=== PATIENT | female | born 1950 | race Caucasian/White ===

== ENCOUNTER → 2016-04-19 | Day surgery (SDC) | payer OTHER ==
[2016-04-18 14:10] VITALS: Ht 162.6 cm; Wt 90.9 kg
[~2016-04-19] VITALS: Ht 162.6 cm; Wt 90.9 kg
[~2016-04-19] MED LIST: ACET-1256 PO; AMT50 PO; CHOL1000 PO; CITA10TA4 PO; LEVO125T4 PO; LIDOCAINE HCL 2% 2 ML VIAL (20MG/ML) ONE; MIDAZOLAM HCL 1 MG/ML 2ML VIAL ONE; OMEP40CA PO; ONDANSETRON INJ 2 MG/ML 2 ML VIAL ONE; PROPOFOL IV EMULSION 10 MG/ML 20 ML VIAL IV ONE; TRIA0.1O12 TOP; ZNTT/150 PO
[2016-04-19 13:43] VITALS: TEMP 36.4
--- NOTE | 2016-04-19 13:43 | Endo History and Physical ---
History & Physical Date of Service: Apr 19, 2016. Chief Complaint: Silva's Referring Physician: Dr. 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 Past Surgical History Hx Cardiac Surgery: No Hx Internal Defibrillator: No Hx Pacemaker: No Hx Abdominal Surgery: Yes (APPY) Hx of Implantable Prosthesis: No Hx Post-Op Nausea and Vomiting: No Hx Cancer Surgery: No Hx Thoracic Surgery: No Hx Orthopedic: Yes (RT FOOT SURGERY AND AMPUTATION OF TOES) Hx Urinary Tract Surgery: No Family History None Social History Smoking Status: Current Every Day Smoker Hx Substance Use: No Hx Alcohol Use: No Allergies Coded Allergies: Hydrocodone (Verified Allergy, Mild, HYPER, 08/18/15) Replaces HYCODAN Homatropine (Verified Allergy, Unknown, HYPER, 04/18/16) Replaces HYCODAN Amoxicillin (Verified Adverse Reaction, Mild, DIARRHEA, 08/18/15) Clavulanic Acid (Verified Adverse Reaction, Mild, DIARRHEA, 08/18/15) Uncoded Allergies: ANTICHOLINERGIC (Allergy, Unknown, HYPER, 04/18/16) Replaces HYCODAN Current Medications Reported Home Medications Medications Dose Route/Sig Max Daily Dose Days Date Category Kenelog 0.1% (Triamcinolone Acetonide) Oint 1 Dose TOP BID 08/18/15 Reported Tylenol (Acetaminophen) 500 Mg Tab 1 Tab PO HS PRN 08/18/15 Reported Vitamin D3 (Cholecalciferol) 1,000 Unit Tab 1 Tab PO QAM 08/18/15 Reported Zantac (Ranitidine HCl) 150 Mg Tab 150 Mg PO HS 08/18/15 Reported Prilosec (Omeprazole) 40 Mg Capcr 40 Mg PO QAM 08/18/15 Reported Elavil (Amitriptyline HCl) 50 Mg Tab 100 Mg PO QAM 08/18/15 Reported Levothyroxine Sodium 125 Mcg Tab 1 Tab PO QAM 08/18/15 Reported Citalopram Hydrobromide 10 Mg Tab 1 Tab PO QAM 08/18/15 Reported Vital Signs Weight (Kilograms): 90.91 Height (Feet): 5 Height (Inches): 4 Physical Exam General Appearance: WD/WN, no apparent distress Respiratory/Chest: Auscultation: breath sounds normal Cardiovascular: Heart Auscultation: RRR Abdomen: Bowel Sounds: normal Inspection & Palpation: soft, non-distended, no tenderness, guarding & rebound Assessment and Plan Assessment: 65 yo CF who presents for 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 Plan: Proceed with EGD.
--- NOTE | 2016-04-19 14:35 | Discharge Instructions ---
Endoscopy Patient Instructions Date / Procedure(s) Performed Apr 19, 2016. EGD Allergy Information Coded Allergies: Hydrocodone (Verified Allergy, Mild, HYPER, 08/18/15) Replaces HYCODAN Homatropine (Verified Allergy, Unknown, HYPER, 04/18/16) Replaces HYCODAN Amoxicillin (Verified Adverse Reaction, Mild, DIARRHEA, 08/18/15) Clavulanic Acid (Verified Adverse Reaction, Mild, DIARRHEA, 08/18/15) Uncoded Allergies: ANTICHOLINERGIC (Allergy, Unknown, HYPER, 04/18/16) Replaces HYCODAN Discharge Date / Findings Apr 19, 2016. Silva's Esophagus s/p biopsies Hiatal hernia Medication Instructions OK to resume all medications today as prescribed. Reported Home Medications Medications Dose Route/Sig Max Daily Dose Days Date Category Kenelog 0.1% (Triamcinolone Acetonide) Oint 1 Dose TOP BID 08/18/15 Reported Tylenol (Acetaminophen) 500 Mg Tab 1 Tab PO HS PRN 08/18/15 Reported Vitamin D3 (Cholecalciferol) 1,000 Unit Tab 1 Tab PO QAM 08/18/15 Reported Zantac (Ranitidine HCl) 150 Mg Tab 150 Mg PO HS 08/18/15 Reported Prilosec (Omeprazole) 40 Mg Capcr 40 Mg PO QAM 08/18/15 Reported Elavil (Amitriptyline HCl) 50 Mg Tab 100 Mg PO QAM 08/18/15 Reported Levothyroxine Sodium 125 Mcg Tab 1 Tab PO QAM 08/18/15 Reported Citalopram Hydrobromide 10 Mg Tab 1 Tab PO QAM 08/18/15 Reported Provider Instructions Activity Restrictions - No exercising or heavy lifting for 24 hours. - Do not drink alcohol the day of the procedure. - Do not drive a car or operate machinery until the day after the procedure. - Do not make any important decisions or sign important papers in 24 hours after the procedure. Following Day: - Return to full activity which may include returning to work/school. Diet Start your diet with liquids and light foods (jello, soup, juice, toast). Then eat your usual diet if not nauseated. Treatment For Common After Affects For mild abdominal pain, bloating, or excessive gas: - Rest - Eat lightly - Lie on right side Follow-Up Information Follow-up with Dr. Marcelino Guillen as scheduled Anesthesia Information What You Should Know You have had a procedure that required some medicine to reduce anxiety and discomfort. This treatment is called moderate sedation. After receiving the treatment, you may be sleepy, but you will be able to breathe on your own. The effects of the treatment may last for several hours. Follow these instructions along with Activity/Diet recommendations noted above: * Do NOT do anything where dizziness or clumsiness would be dangerous. * Rest quietly at home today, then you can be up and about tomorrow. * Have a responsible person stay with you the rest of today. * You may have had an I.V. today. If so, you may take the dressing off later today. Recommendations Call your doctor if: * Trouble breathing * Continuous vomiting for more than 24 hours * Temperature above 101 degrees * Severe abdominal pain or bloating * Pain not relieved by pain medicine ordered * There is increased drainage or redness from any incision * A large amount of rectal bleeding greater than 2-3 tablespoons. (If you had a polyp/s removed or have hemorrhoids, a small amount of blood - from the rectum is to be expected.) * You have any unanswered questions or concerns. IN THE EVENT OF A SERIOUS EMERGENCY, GO TO THE NEAREST EMERGENCY ROOM Your discharge instructions were prepared by provider Ken Holland. Patient Instructions Signature Page Anusha Santiago Patient (or Guardian) Signature/Date: I have read and understand the instructions given to me by my caregivers. Caregiver/RN/Doctor Signature/Date: The above-named patient and/or guardian has received patient instructions on this date. + Original Patient Signature Page (only) stays with chart. Please make copy for patient.
[2016-04-19 14:54] VITALS: BP 111/69; PULSE 73; O2SAT 96
--- NOTE | 2016-04-19 15:19 | GI REPORT ---
Procedure Date: 04/19/2016 2:06 PM Procedure: Upper GI endoscopy Indications: Follow-up of Silva's esophagus Medicines: Monitored Anesthesia Care Complications: No immediate complications. Estimated Blood Loss: Estimated blood loss: none. Procedure: Pre-Anesthesia Assessment: - Prior to the procedure, a History and Physical was performed, and patient medications and allergies were reviewed. The patient's tolerance of previous anesthesia was also reviewed. The risks and benefits of the procedure and the sedation options and risks were discussed with the patient. All questions were answered, and informed consent was obtained. Prior Anticoagulants: The patient has taken no previous anticoagulant or antiplatelet agents. ASA Grade Assessment: III - A patient with severe systemic disease. After reviewing the risks and benefits, the patient was deemed in satisfactory condition to undergo the procedure. After obtaining informed consent, the endoscope was passed under direct vision. Throughout the procedure, the patient's blood pressure, pulse, and oxygen saturations were monitored continuously. The On-site loaner was introduced through the mouth, and advanced to the second part of duodenum. The upper GI endoscopy was accomplished without difficulty. The patient tolerated the procedure well. Findings: There were esophageal mucosal changes consistent with short-segment Silva's esophagus present at the gastroesophageal junction. The maximum longitudinal extent of these mucosal changes was 2 cm in length. Mucosa was biopsied with a cold forceps for histology. A small hiatus hernia was present. The examined duodenum was normal. Impression: - Esophageal mucosal changes consistent with short-segment Silva's esophagus. Biopsied. - Small hiatus hernia. - Normal examined duodenum. Recommendation: - Resume previous diet. - Continue present medications. - Await pathology results. - Return to primary care physician as previously scheduled. Ken Holland, 04/19/2016 2:34:39 PM This report has been signed electronically. Note Initiated On: 04/19/2016 2:06 PM I attest to the content of the Intraoperative Record and orders documented therein, exceptions below
--- NOTE | 2016-04-19 15:36 | Anesthesiology Progress Note ---
Anesthesia Post Op Note Date & Time Apr 19, 2016 at 15:36 Vital Signs Pain Intensity: 0 Vital Signs Past 12 Hours Date Time Temp Pulse Resp B/P Pulse Ox O2 Delivery O2 Flow Rate FiO2 04/19/16 14:54 73 20 111/69 96 Room Air 04/19/16 14:39 78 20 97/54 93 Room Air 04/19/16 14:35 79 20 86/46 96 Room Air 04/19/16 13:43 36.4 81 20 117/64 98 Room Air Notes Mental Status: alert / awake / arousable Nausea / Vomiting: adequately controlled Pain: adequately controlled Airway Patency, RR, SpO2: stable & adequate BP & HR: stable & adequate Hydration State: stable & adequate Anesthetic Complications: no major complications apparent
== END | disposition home or self-care (01) ==
LOC: C.GI 13:16
PROVIDERS: ATTEND Internal Medicine
DX: K22.70 Barrett's esophagus without dysplasia (principal); K44.9 Diaphragmatic hernia without obstruction or gangrene; Z89.421 Acquired absence of other right toe(s); F17.210 Nicotine dependence, cigarettes, uncomplicated; Z88.5 Allergy status to narcotic agent; Z88.1 Allergy status to other antibiotic agents; Z88.8 Allergy status to other drugs, medicaments and biological substances; J45.909 Unspecified asthma, uncomplicated; E78.5 Hyperlipidemia, unspecified; K21.9 Gastro-esophageal reflux disease without esophagitis; F32.9 Major depressive disorder, single episode, unspecified; G60.0 Hereditary motor and sensory neuropathy

== ENCOUNTER → 2016-06-05 | Outpatient (CLI) | payer OTHER ==
[~2016-06-05] MED LIST changes: -LEVO125T4 PO; +LEVO125T5 PO; -LIDOCAINE HCL 2% 2 ML VIAL (20MG/ML) ONE; -MIDAZOLAM HCL 1 MG/ML 2ML VIAL ONE; -ONDANSETRON INJ 2 MG/ML 2 ML VIAL ONE; -PROPOFOL IV EMULSION 10 MG/ML 20 ML VIAL IV ONE
[2016-06-05 13:20] LABS: BASO % 0.6 %; BASO ABS # 0.04 K/uL (0-0.2); COMPLETE YES; EOS % 4.8 %; HEMATOCRIT 38.3 % (37-47); IG% 0.4 %; LYMPH ABS # 1.91 K/uL (1.2-3.4); MEAN CELL VOLUME 90.5 fL (80-100); MEAN CORPUSCULAR HEMOGLOBIN 32.2 pg (25-34); MEAN CORPUSCULAR HGB CONC 35.5 g/dl (32-36); MONO % 5.6 %; NEUT % 60.6 %; PLATELET COUNT 233 K/uL (130-400); RED BLOOD COUNT 4.23 M/uL (4.2-5.4); WHITE BLOOD COUNT 6.81 K/uL (4.8-10.8)
[2016-06-05 13:38] LABS: ESTIMATED AVERAGE GLUCOSE 128 mg/dl; HA1C FLAG Normal (Normal)
[2016-06-05 13:57] LABS: AST/SGOT 16 U/L (15-37); BLOOD UREA NITROGEN 16 mg/dl (7-18); BUN/CREATININE RATIO 14.2 (10-20); CALCIUM 8.9 mg/dl (8.5-10.1); CARBON DIOXIDE 27 mmol/L (21-32); CHLORIDE 109 mmol/L (98-107); GLUCOSE 119 mg/dl (70-99); POTASSIUM 4.4 mmol/L (3.5-5.1); SODIUM 142 mmol/L (136-145)
[2016-06-05 14:10] LABS: ALB/GLOB RATIO 1.1 (0.9-2); ALKALINE PHOSPHATASE 86 U/L (45-117); ALT/SGPT 30 U/L (12-78); CHOLESTEROL 179 mg/dl (0-200); CHOLESTEROL/HDL RATIO 5.6; HDL CHOLESTEROL 32 mg/dl; LDL CHOLESTEROL CALCULATED 112 mg/dl; TRIGLYCERIDES 174 mg/dl (0-150); VERY LOW DENSITY LIPOPROT CALC 35 mg/dl
--- NOTE | 2016-06-20 11:33 | CODING QUERY MEDICAL NECESSITY ---
CQSUPPORTING DIAGNOSIS NEEDED A supporting diagnosis is required for the test/procedure performed on this patient in order for us to be reimbursed by the patient's insurance. Please provide a supporting diagnosis for the following test/procedure listed below next to the test name along with your signature. *If there is no additional diagnosis for this patient that would support the following test/procedure please document that below next to the test/procedure. Test(s)/Procedure(s) that require a supporting diagnosis: DOS 06/05/16 GLYCATED HEMOGLOBIN TEST Provider Signature: Date: Thank you Miranda Rojo Health Information Management Once completed, please kindly fax back to [phone] For questions please call [phone]
== END | disposition home or self-care (01) ==
LOC: C.LAB1850 12:21
PROVIDERS: ATTEND Internal Medicine
DX: E03.9 Hypothyroidism, unspecified (principal); K22.70 Barrett's esophagus without dysplasia; G62.9 Polyneuropathy, unspecified; E16.2 Hypoglycemia, unspecified

== ENCOUNTER → 2016-12-15 | Outpatient (CLI) | payer OTHER ==
--- NOTE | 2016-12-15 11:47 | DIAGNOSTIC IMAGING REPORT ---
RIGHT ARM 2 VIEWS HISTORY: M79.603 Arm pain right [id number] COMPARISON: None. FINDINGS: There is no fracture or dislocation. Soft tissues are unremarkable. No radiopaque foreign bodies. IMPRESSION: No fractures within the right humerus. Electronically signed by: Jacky Cantor M.D. 12/15/2016 11:46 AM Dictated Date/Time: 12/15/2016 11:41 AM
== END | disposition home or self-care (01) ==
LOC: C.RAD1850 11:27
PROVIDERS: ATTEND Internal Medicine
DX: M79.601 Pain in right arm (principal)

== ENCOUNTER → 2017-01-09 | Outpatient (CLI) | payer OTHER ==
[2017-01-09 15:04] LABS: ALT/SGPT 29 U/L (12-78); BLOOD UREA NITROGEN 13 mg/dl (7-18); BUN/CREATININE RATIO 13.3 (10-20); CALCIUM 9.1 mg/dl (8.5-10.1); CARBON DIOXIDE 24 mmol/L (21-32); CHLORIDE 105 mmol/L (98-107); CHOLESTEROL 200 mg/dl (0-200); CREATININE 0.97 mg/dl (0.60-1.20); GLUCOSE 111 mg/dl (70-99); POTASSIUM 4.1 mmol/L (3.5-5.1); SODIUM 137 mmol/L (136-145)
[2017-01-09 15:15] LABS: ALB/GLOB RATIO 1.1 (0.9-2); ALKALINE PHOSPHATASE 78 U/L (45-117); AST/SGOT 17 U/L (15-37); CHOLESTEROL/HDL RATIO 5.1; HDL CHOLESTEROL 39 mg/dl; LDL CHOLESTEROL CALCULATED 127 mg/dl; TRIGLYCERIDES 169 mg/dl (0-150); VERY LOW DENSITY LIPOPROT CALC 34 mg/dl
[2017-01-10 07:45] LABS: ESTIMATED AVERAGE GLUCOSE 120 mg/dl; HA1C FLAG Normal (Normal)
== END | disposition home or self-care (01) ==
LOC: C.LAB1850 12:57
PROVIDERS: ATTEND Internal Medicine
DX: E78.5 Hyperlipidemia, unspecified (principal); E21.3 Hyperparathyroidism, unspecified; R73.03 Prediabetes; E03.9 Hypothyroidism, unspecified

== ENCOUNTER 2017-04-30 14:51 | Emergency (ER) | payer OTHER ==
[~2017-04-30] VITALS: Ht 162.6 cm; Wt 85.0 kg
[~2017-04-30 14:51] MED LIST changes: +RANI150T85 PO; -ZNTT/150 PO
[2017-04-30 15:06] VITALS: TEMP 36.6; Ht 162.6 cm; Wt 85.0 kg
[2017-04-30] MEDS ORDERED: OMEP40CA41 PO (15:34)
[2017-04-30] MEDS ORDERED: ONDANSETRON INJ 2 MG/ML 2 ML VIAL IV STA (15:36)
[2017-04-30] MEDS ORDERED: CITA20TA9 PO (15:39)
[2017-04-30] MEDS ORDERED: MoRPHine SULFATE 4 MG/ML 1 ML CARP\\VIAL IV PRN (15:45)
[2017-04-30 16:23] LABS: BASO % 0.4 %; BASO ABS # 0.03 K/uL (0-0.2); EOS % 2.9 %; EOS ABS # 0.25 K/uL (0-0.5); HEMATOCRIT 41.6 % (37-47); HEMOGLOBIN 14.7 g/dL (12.0-16.0); IG# 0.04 K/uL (0.00-0.02); LYMPH % 29.2 %; LYMPH ABS # 2.49 K/uL (1.2-3.4); MEAN CELL VOLUME 89.8 fL (80-100); MEAN CORPUSCULAR HEMOGLOBIN 31.7 pg (25-34); MEAN CORPUSCULAR HGB CONC 35.3 g/dl (32-36); MEAN PLATELET VOLUME 9.2 fL (7.4-10.4); MONO % 6.3 %; MONO ABS # 0.54 K/uL (0.11-0.59); NEUT % 60.7 %; NEUT ABS # 5.19 K/uL (1.4-6.5); PLATELET COUNT 230 K/uL (130-400); RED CELL DISTRIBUTION WIDTH CV 12.4 % (11.5-14.5); RED CELL DISTRIBUTION WIDTH SD 40.1 fL (36.4-46.3); WHITE BLOOD COUNT 8.54 K/uL (4.8-10.8)
[2017-04-30 16:40] LABS: ALBUMIN 3.9 gm/dl (3.4-5.0); ALT/SGPT 22 U/L (12-78); BLOOD UREA NITROGEN 17 mg/dl (7-18); CALCIUM 9.6 mg/dl (8.5-10.1); CARBON DIOXIDE 24 mmol/L (21-32); CREATININE 0.81 mg/dl (0.60-1.20); GLUCOSE 86 mg/dl (70-99); LIPASE 134 U/L (73-393); POTASSIUM 4.3 mmol/L (3.5-5.1); SODIUM 137 mmol/L (136-145)
[2017-04-30 16:42] LABS: ALKALINE PHOSPHATASE 70 U/L (45-117); AST/SGOT 14 U/L (15-37); TOTAL PROTEIN 7.6 gm/dl (6.4-8.2)
--- NOTE | 2017-04-30 17:10 | DIAGNOSTIC IMAGING REPORT ---
LUMBAR SPINE W/O CONTRAST CLINICAL HISTORY: 66 years-old Female with Back pain. Acute low back pain, severe in nature COMPARISON: None. TECHNIQUE: Multiplanar, multi sequence MRI of the lumbar spine was performed without intravenous contrast. FINDINGS: The large [id number] marketing and development coordinator localizer images demonstrate no gross abnormality. Exam is mildly motion degraded. Modic type II endplate degenerative changes are noted at the anterosuperior aspect of L3. No focal bone marrow edema, acute fracture or subluxation. Conus medullaris terminates at the T12-L1 level. Signal within the imaged thoracic spinal cord appears unremarkable. The cauda equina appear unremarkable. No aortic aneurysm or adenopathy identified. 6 mm anterolisthesis L4 on L5. T12-L1: No central canal or neural foraminal stenosis. Mild facet arthrosis. L1-L2: No central canal or neural foraminal stenosis. Mild facet arthrosis and ligamentum flavum thickening. L2-L3: Mild intervertebral disc space narrowing with small posterior disc bulge flattening the ventral thecal sac resulting in mild inferior right foraminal narrowing. Additionally, there is mild facet arthrosis with ligamentum flavum thickening. L3-L4: Mild intervertebral disc space narrowing with facet arthrosis and ligamentum flavum thickening. Minimal posterior spondylitic spurring is also noted with a small posterior disc bulge which flattens the ventral thecal sac. No significant central canal narrowing. There is mild bilateral foraminal narrowing. L4-L5: Mild intervertebral disc space narrowing with circumferential annular disc bulge, moderate facet arthrosis with ligamentum flavum thickening. These changes cause mild central canal and mild bilateral foraminal stenosis. Grade 1 anterolisthesis. Minimal posterior spondylitic spurring. L5-S1: Minimal posterior spondylitic spurring with moderate facet arthrosis and ligamentum flavum thickening. Small posterior disc bulge without central canal or significant foraminal narrowing. IMPRESSION: 1. 6 mm anterolisthesis L4 on L5 without associated bone marrow edema, likely secondary to long-standing moderate facet arthropathy. 2. Degenerative changes at L4-L5 as above cause mild central canal and mild bilateral foraminal narrowing. 3. Mild bilateral foraminal stenosis at L3-L4 secondary to facet arthrosis and small posterior disc bulge. 4. No acute fracture or subluxation. The above report was generated using voice recognition software. It may contain grammatical, syntax or spelling errors. Electronically signed by: Juan Pascual M.D. 04/30/2017 5:08 PM Dictated Date/Time: 04/30/2017 4:58 PM
[2017-04-30 17:22] VITALS: BP 113/56
--- NOTE | 2017-04-30 17:39 | EMERGENCY ROOM VISIT NOTE ---
ED Visit Note First contact with patient: 15:14 Patient was seen by our PA/TIRE FABRICATOR. I was involved in the patient's care and did evaluate the patient myself. I was involved in the care throughout the ER stay. The patient presents with lower back pain. She has been doing more walking lately and this may have aggravated the back. An MRI was done, there were some chronic findings and some narrowing in different areas but nothing acutely surgical. Urinalysis does not show infection. Laboratory testing was unrevealing. Patient will be discharged with outpatient specialty follow-up.
[2017-04-30] MEDS ORDERED: KETO10TA PO (18:03)
[2017-04-30] MEDS ORDERED: PRED20TA PO (18:03)
[2017-04-30 18:30] VITALS: PULSE 87; O2SAT 98
--- NOTE | 2017-04-30 23:45 | EMERGENCY ROOM VISIT NOTE ---
ED Visit Note First contact with patient: 15:14 Chief Complaint: Severe lower back pain. History of Present Illness: Ms. Santiago is a 66-year-old white female who is brought into the ED via mobilized wheelchair complaining of severe left-sided lumbar back pain. I should note that patient is a poor historian. Multiple times during my history and physical examination she was bringing up symptoms that she was having 6-7 years ago that were not related to today's symptoms. 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 She was referred to the ED by her PCP today because she could not be seen in the office. Patient reports her pain started on , 4 days ago. Since that time her pain has been constant but has waxed and waned in intensity. She reports 5 days ago she went to the store and there was not an available motorized wheelchair/cart so she walked through 4-5 miles doing her grocery shopping until one was found. She reports the next morning she started having back pain. Initially she reports the pain was through the central portion of the lower back but then within 2 days her discomfort was over the left paraspinous muscular area. She reports at rest without movement her mild and described as achy. She rates this discomfort 3/10. Her pain is nonradiating. When she is rolling in bed or lying on the left side of her body her pain becomes more sharp in nature and she rates this discomfort 7/10. Also when she performs these activities her pain radiates up into the thoracic spine. She has not identified any alleviating factors related to the pain. She reports that prior to this event she was on prescribed Neurontin and acetaminophen for pain but stopped taking it for fear of kidney damage. Since the pain started she had restarted retaking his medications at lower dose then prescribed and has had no relief of her discomfort. Associated with these symptoms she reports she has been having urinary incontinence; she reports because she uses a motorized vehicle that when she has an immediate need to go to the bathroom it takes a moderate amount of time to get in her vehicle and to the bathroom and then subsequently has an episode of urinary incontinence. She does not feel like she is unable to control her bladder functions. She reports before the onset/ exacerbation of pain this happened approximately 10 times a week and now she reports it happens most of the time during the day when she needs to go to the bathroom. She denies fevers, chills, sweats, skin eruptions, skin color changes, recent trauma direct/repetitive to her lower back, abdominal pain, nausea, vomiting, diarrhea, constipation, fecal incontinence, lower extremity worsening weakness or numbness or tingling, urinary symptoms, hematuria. Review of Systems: As noted above in history of present illness. All body systems were reviewed and found to be negative as noted above. Past Medical History: As noted above, bronchitis, depression, dyslipidemia, hyperparathyroidism, hypothyroidism, peripheral neuropathy reactive arthritis status post tonsillectomy, adenoidectomy, appendectomy. Current Medications: Medications Dose Route/Sig Max Daily Dose Days Date Category Dose Instructions Celexa (Citalopram Hydrobromide) 20 Mg Tab 20 Mg PO DAILY 04/30/17 Reported Prilosec (Omeprazole) 40 Mg Cap 40 Mg PO DAILY 04/30/17 Reported Tylenol (Acetaminophen) 500 Mg Tab 500 Mg PO HS PRN 08/18/15 Reported Vitamin D3 (Cholecalciferol) 1,000 Unit Tab 3,000 Mg PO QAM 08/18/15 Reported Zantac (Ranitidine HCl) 150 Mg Tab 150 Mg PO HS 08/18/15 Reported Levothyroxine Sodium 125 Mcg Tab 125 Mcg PO QAM 08/18/15 Reported Allergies to Medications: Anticholinergic medications, Augmentin, homatropine, Hycodan. Social History: Patient is not employed; she is on disability; she feels safe in her home environment; she admits to daily tobacco use and rare alcohol use. Physical Examination: Vital Signs: Date Time Temp Pulse Resp B/P (MAP) Pulse Ox O2 Delivery O2 Flow Rate FiO2 04/30/17 18:30 87 18 98 04/30/17 17:22 77 16 113/56 95 Room Air 04/30/17 15:06 36.6 80 20 136/77 97 Room Air GENERAL: 66-year-old female in mild distress due to pain, chronically ill appearing, afebrile and hemodynamically stable. NEUROLOGICAL: Awake, alert and oriented to person, place and time. Answering questions appropriately and following commands. Good hand eye coordination. SKIN: Warm, dry and pink. HEENT: Atraumatic and normocephalic. PERRLA. Sclera white and conjunctiva pink. No drainage from naris. Oral cavity moist and pink. Pharynx is nonerythematous or edematous. Speech normal. No lymphadenopathy. Trachea midline. No jugular venous distention. BACK: No tenderness over the bony cervical, thoracic and lumbar spine. Mild tenderness just left of the lumbar bony spine without palpable masses or muscle spasm. Because of her pain with movement I was not able to do range of motion exercises. She does have 4/5 muscle strength in hip flexion, extension, abduction and abduction, knee flexion and extension. Negative modified straight leg raise test. No CVA tenderness. THORAX: Lungs sounds are clear to auscultation and equal bilaterally with symmetrical chest wall. No wheezing, rales or rhonchi. HEART: Regular rate and rhythm. No gallops, rubs or murmurs are appreciated. ABDOMEN: Flat, soft and nontender. Positive bowel sounds in all quadrants. No guarding, rigidity or organomegaly. EXTREMITIES: Moves all extremities well on command and with purpose. All distal neurovascular statuses are intact and equal bilaterally. Feet shows multiple surgical amputations but no signs of infection. No calf tenderness or cords. ED Course: Patient is assessed as noted above. Patient's medication list was reviewed. Laboratory Testing: Test 04/30/17 16:13 04/30/17 17:19 Range/Units White Blood Count 8.54 4.8-10.8 K/uL Red Blood Count 4.63 4.2-5.4 M/uL Hemoglobin 14.7 12.0-16.0 g/dL Hematocrit 41.6 37-47 % Mean Corpuscular Volume 89.8 80-100 fL Mean Corpuscular Hemoglobin 31.7 25-34 pg Mean Corpuscular Hemoglobin Concent 35.3 32-36 g/dl Platelet Count 230 130-400 K/uL Mean Platelet Volume 9.2 7.4-10.4 fL Neutrophils (%) (Auto) 60.7 % Lymphocytes (%) (Auto) 29.2 % Monocytes (%) (Auto) 6.3 % Eosinophils (%) (Auto) 2.9 % Basophils (%) (Auto) 0.4 % Neutrophils # (Auto) 5.19 1.4-6.5 K/uL Lymphocytes # (Auto) 2.49 1.2-3.4 K/uL Monocytes # (Auto) 0.54 0.11-0.59 K/uL Eosinophils # (Auto) 0.25 0-0.5 K/uL Basophils # (Auto) 0.03 0-0.2 K/uL RDW Standard Deviation 40.1 36.4-46.3 fL RDW Coefficient of Variation 12.4 11.5-14.5 % Immature Granulocyte % (Auto) 0.5 % Immature Granulocyte # (Auto) 0.04 0.00-0.02 K/uL Sodium Level 137 136-145 mmol/L Potassium Level 4.3 3.5-5.1 mmol/L Chloride Level 105 98-107 mmol/L Carbon Dioxide Level 24 21-32 mmol/L Anion Gap 8.0 3-11 mmol/L Blood Urea Nitrogen 17 7-18 mg/dl Creatinine 0.81 0.60-1.20 mg/dl Est Creatinine Clear Calc Drug Dose 73.1 ml/min Estimated GFR () 88.3 Estimated GFR (Non- 76.2 BUN/Creatinine Ratio 21.4 10-20 Random Glucose 86 70-99 mg/dl Calcium Level 9.6 8.5-10.1 mg/dl Total Bilirubin 0.4 0.2-1 mg/dl Direct Bilirubin < 0.1 0-0.2 mg/dl Aspartate Amino Transf (AST/SGOT) 14 15-37 U/L Alanine Aminotransferase (ALT/SGPT) 22 12-78 U/L Alkaline Phosphatase 70 45-117 U/L Total Protein 7.6 6.4-8.2 gm/dl Albumin 3.9 3.4-5.0 gm/dl Lipase 134 73-393 U/L Urine Color YELLOW Urine Appearance CLEAR CLEAR Urine pH 5.0 4.5-7.5 Urine Specific [place] 1.013 1.000-1.030 Urine Protein NEG NEG Urine Glucose (UA) NEG NEG Urine Ketones NEG NEG Urine Occult Blood NEG NEG Urine Nitrite NEG NEG Urine Bilirubin NEG NEG Urine Urobilinogen NEG NEG Urine Leukocyte Esterase NEG NEG Lumbar Spine MRI: Was reviewed by myself and read by the radiologist showing 7 mm anterolisthesis L4 on L5 without associated bone marrow edema. Degenerative changes at the L4-L5 causing mild central canal and mild bilateral foraminal narrowing. Mild bilateral foraminal stenosis at L3-L4 secondary to facet arthrosis and small posterior disc bulging and no fractures or dislocations. An IV lock was initiated and patient received 4 mg of morphine IV and 4 mg of Zofran IV for her symptoms. Patient was reassessed multiple times during her stay in the emergency department. Patient's case was reviewed with Dr. Edmonds; we agreed on diagnostic approach, treatment, disposition and plan. Patient was educated about today's findings and instructed on her treatment plan ; she verbalized understanding and agreement with this plan. Clinical Impression: Acute lumbar back pain. Decision-Making: Initially my differential diagnosis I considered muscle strain , herniated disc, lumbar mass, muscle spasm, cauda equina syndrome, pyelonephritis, and other causes. Disposition: Patient discharged home in stable condition; prior to departure she was reassessed and subjectively reported she was feeling much better and rated her discomfort 3/10. Plan: She was encouraged to continue her current medications as prescribed. Patient was prescribed Toradol 10 mg every 6 hours as needed for pain. Patient was prescribed a prednisone taper. Patient is use ice on areas of pain 5-6 times a day for 20-30 minutes. Patient was encouraged to follow-up with her PCP for recheck and possible referral to back surgery. Patient was encouraged to return the ED for worsening/uncontrolled pain, worsening urinary incontinence, bowel incontinence, rectal/genital paresthesias , fevers, abdominal pain or any new/concerning symptoms.
== END 2017-04-30 18:31 | disposition home or self-care (01) ==
LOC: C.EDB 14:53
DX: M54.5 Low back pain (principal); G71.0 Muscular dystrophy; G60.0 Hereditary motor and sensory neuropathy; F32.9 Major depressive disorder, single episode, unspecified; E78.5 Hyperlipidemia, unspecified; E21.3 Hyperparathyroidism, unspecified; E03.9 Hypothyroidism, unspecified; G62.9 Polyneuropathy, unspecified; M02.30 Reiter's disease, unspecified site; Z79.899 Other long term (current) drug therapy; Z72.0 Tobacco use; Z88.8 Allergy status to other drugs, medicaments and biological substances; Z88.1 Allergy status to other antibiotic agents

== ENCOUNTER → 2017-09-24 | Outpatient (CLI) | payer OTHER ==
[~2017-09-24] MED LIST changes: -AMT50 PO; -CITA10TA4 PO; +CITA20TA9 PO; -OMEP40CA PO; +OMEP40CA41 PO; +PRED20TA PO; -TRIA0.1O12 TOP
[2017-09-24 14:06] LABS: HEMATOCRIT 41.8 % (37-47); MEAN CELL VOLUME 89.5 fL (80-100); MEAN CORPUSCULAR HEMOGLOBIN 32.1 pg (25-34); MEAN CORPUSCULAR HGB CONC 35.9 g/dl (32-36); MEAN PLATELET VOLUME 9.9 fL (7.4-10.4); PLATELET COUNT 156 K/uL (130-400); RED CELL DISTRIBUTION WIDTH CV 12.6 % (11.5-14.5); RED CELL DISTRIBUTION WIDTH SD 40.9 fL (36.4-46.3)
[2017-09-24 14:42] LABS: ALKALINE PHOSPHATASE 70 U/L (45-117); ALT/SGPT 25 U/L (12-78); AST/SGOT 19 U/L (15-37); BLOOD UREA NITROGEN 13 mg/dl (7-18); CARBON DIOXIDE 24 mmol/L (21-32); CHOLESTEROL 192 mg/dl (0-200); CREATININE 0.89 mg/dl (0.60-1.20); GLUCOSE 96 mg/dl (70-99); LDL CHOLESTEROL CALCULATED 126 mg/dl; POTASSIUM 4.2 mmol/L (3.5-5.1); SODIUM 139 mmol/L (136-145); TOTAL PROTEIN 7.5 gm/dl (6.4-8.2)
[2017-09-25 06:17] LABS: HEMOGLOBIN A1C 5.6 % (4.5-5.6)
== END | disposition home or self-care (01) ==
LOC: C.LAB1850 12:57
PROVIDERS: ATTEND Internal Medicine
DX: E78.5 Hyperlipidemia, unspecified (principal); E21.3 Hyperparathyroidism, unspecified; K22.70 Barrett's esophagus without dysplasia; E03.9 Hypothyroidism, unspecified; E16.2 Hypoglycemia, unspecified

== ENCOUNTER 2024-10-21 11:49 | Inpatient (IN) ==
--- NOTE | 2024-10-21 12:12 | Emergency Department Note ---
Impression & Plan Acute hip pain, Mood disorder ED Provider Note NAME: JAREK SILVA AGE: 73 SEX: F : 1950 ARRIVES VIA: Ambulance INFORMANT: Patient ED PROVIDER(S): Iglesia Vu DO CHIEF COMPLAINT: Right hip groin and back pain HPI: Patient is a 73-year-old female who presents to the ER for right hip and groin and back pain. Pain in the back and groin has been present for the past several years. She notes it has waxed and waned in intensity. Denies any headache but does admit to some intermittent jaw pain. No chest pain or shortness of breath. She notes that she does feel like the FBI is watching her and tracking her. Denies any belly pain. No nausea, vomiting, or diarrhea. She notes that she does not ambulate and uses a wheelchair. ADDITIONAL HISTORY OBTAINED: Per HPI Chronic Medical/Social Conditions Affecting Care: Per HPI PAST MEDICAL HISTORY:See Below PAST SURGICAL HISTORY:See Below FAMILY HISTORY:See Below SOCIAL HISTORY:See Below HOME MEDICATIONS:See Below ALLERGIES:See Below VITALS:See Below PHYSICAL EXAMINATION: GENERAL: Sitting up in bed, alert, well appearing, well nourished, no distress, non-toxic EYE EXAM: normal conjunctiva. OROPHARYNX: mucous membranes are moist NECK: supple, no nuchal rigidity, no adenopathy, non-tender LUNGS: Clear to auscultation. Normal chest wall mechanics HEART: no murmurs, S1 normal and S2 normal ABDOMEN: abdomen soft, tender palpation right groin, normo-active bowel sounds, no masses, no rebound or guarding. BACK: Back is symmetrical on inspection and there is no deformity, no midline tenderness, no CVA tenderness. SKIN: no rashes and no bruising UPPER EXTREMITIES: upper extremities are grossly normal. LOWER EXTREMITIES: Flexion-extension of bilateral hips, and knees intact. 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 NEURO EXAM: Normal sensorium, cranial nerves II-XII grossly intact, normal speech, no gross weakness of arms, no gross weakness of legs. MEDICAL DECISION MAKING: Patient is a 73-year-old female who presents to the ER with above-stated complaint. IV was established and blood work was obtained. Labs show no significant leukocytosis or anemia. BMP with LFTs bilirubin is unremarkable. Troponin was negative. UA was negative. Chest x-ray and CT head was negative. CT of the abdomen pelvis was unremarkable. Patient was discussed with our [facility] administrator who evaluated the patient and did petition a 302 as she does appear to be paranoid and delusional. Patient was discussed with the hospitalist for further evaluation management and treatment. Consults/Care Managements Discussions: Per [facility] Triage Nursing notes reviewed. Limited review of prior medical records performed Vital Signs: reviewed and remarkable for no significant abnormalities Differential diagnosis: Mood disorder, infection, hypoglycemia, electrolyte abnormalities, cardiac sources, intracerebral event, toxicologic, trauma, neurologic, as well as other pathologies. Infection, dehydration, metabolic abnormality, hypo/hyperglycemia, electrolyte disturbance, anemia, hypoxia, cardiac sources, intracerebral event, toxicologic, neurologic, as well as other pathologies. ER treatment provided: See below Diagnostics interpreted by me include EKG and cardiac monitoring as listed below: -Cardiac Monitoring: An order was placed for continuous cardiac monitoring. The monitor shows a rate of 70 with sinus rhythm. -ECG: none -Laboratory studies:Interpreted by me as stated above in MDM and shown below. Imaging studies: Xrays: As interpreted by me: Portable AP upright 1 view of the chest shows no focal infiltrate CTs show sinus rhythm rate 81 Normal axis No PVCs QTc normal 425 No significant change from previous Procedures:none Critical Care: None Past Med/Surg History Problem List (Updated 10/21/24 @ 15:15 by Iglesia Vu DO) Mood disorder (Acute) Acute hip pain (Acute) Delusions Hip pain Vitamin D deficiency (Acute) Urinary incontinence (Acute) Pre-diabetes (Acute) Peripheral neuropathy (Acute) PAD (peripheral artery disease) (Acute) Mixed sensory-motor polyneuropathy (Acute) Hypothyroidism (Acute) Hypoglycemia (Acute) Hyperparathyroidism (Acute) Dyslipidemia (Acute) Depression (Acute) Silva's esophagus (Acute) Medical History History of contact dermatitis Carpal tunnel syndrome Benign familial tremor Pressure ulcer of foot, stage 2 Wound infection Osteoarthritis Urinary urgency Hiatal hernia GERD (gastroesophageal reflux disease) Hearing deficit Depression Aighjkt-Qoltr-Qzymk disease Cardiac murmur A CHILD Surgical History History of amputation RT FOOT TOES H/O foot surgery RT FOOT History of esophagogastroduodenoscopy (EGD) History of colonoscopy History of appendectomy History of tooth extraction History of tonsillectomy Family History Father Eluvhwh-Fnywp-Uhbmj disease Coronary heart disease Leiomyoma Mother Depression Leiomyoma Thyroid disease Parkinson's disease Sister Leiomyoma Social History Smoking Status: Current every day smoker Tobacco Type: Cigarettes Cigarettes Per Day: 20 CIG DAILY; Second Hand Exposure: Yes; Do You Dip or Chew Tobacco: No; Hx Alcohol Use: No Hx Substance Use: No Preferred Language: Angolan Investigations Consultant Required: No Beliefs That Will Affect Care: None Current Living Situation: Alone Feels Safe at Home: No Is there a partner from a previous relationship who is making you feel unsafe now?: No Seatbelt Use: always Assistive Devices: Brace/Splint/Immobilizer, Glasses, Walker and Wheelchair Allergies Allergies Allergy/AdvReac Type Severity Reaction Status Date / Time homatropine Allergy Mild HYPER Verified 10/15/18 13:36 hydrocodone Allergy Mild HYPER Verified 10/15/18 13:36 amoxicillin AdvReac Mild DIARRHEA Verified 10/15/18 13:36 clavulanic acid AdvReac Mild DIARRHEA Verified 10/15/18 13:36 ANTICHOLINERGIC Allergy Mild HYPER Uncoded 10/15/18 13:36 Home Meds Home Medications Medication Instructions Recorded Confirmed cholecalciferol (vitamin D3) 25 4,000 units PO DAILY 07/23/18 10/15/18 mcg (1,000 unit) capsule Previous Rx's Medication Instructions Recorded triamcinolone acetonide 0.1 % 1 appln topical DAILY #30 grams 10/18/18 topical cream citalopram 40 mg tablet 40 mg PO DAILY #90 tabs 09/01/19 levothyroxine 125 mcg tablet 125 mcg PO DAILY #90 tabs 09/01/19 omeprazole 40 mg capsule,delayed 40 mg PO DAILY #90 caps 09/01/19 release famotidine 40 mg tablet 40 mg PO DAILY #90 tabs 09/16/24 Results & Data (ED) Vital Signs Vital Signs - 24 hr 10/21/24 12:21 10/21/24 12:21 10/21/24 12:21 Temperature 36.8 C Temperature Source Oral Pulse Rate 79 78 Pulse Rate from SpO2 Sensor Pulse Rhythm Regular Regular Pulse Strength Normal Respiratory Rate 14 16 Respiratory Effort / Characteristics Non-Labored Respiratory Depth Normal Respiratory Pattern Regular Blood Pressure 131/77 Blood Pressure Mean 95 Pulse Oximetry 98 98 98 Oxygen Delivery Method Room Air Room Air Room Air Oxygen Flow Rate 0 Sepsis Recent Fever Within 48 Hours No Sepsis New/Unexplained Change in Mental Status N/A Sepsis Action Taken by Nursing No Action Required 10/21/24 12:30 10/21/24 13:00 10/21/24 13:00 Temperature Temperature Source Pulse Rate 80 80 83 Pulse Rate from SpO2 Sensor Pulse Rhythm Pulse Strength Respiratory Rate 15 15 Respiratory Effort / Characteristics Respiratory Depth Respiratory Pattern Blood Pressure 134/71 117/65 Blood Pressure Mean 97 74 Pulse Oximetry 99 98 Oxygen Delivery Method Oxygen Flow Rate Sepsis Recent Fever Within 48 Hours Sepsis New/Unexplained Change in Mental Status Sepsis Action Taken by Nursing 10/21/24 13:00 10/21/24 13:00 10/21/24 13:30 Temperature Temperature Source Pulse Rate 80 80 Pulse Rate from SpO2 Sensor Pulse Rhythm Pulse Strength Respiratory Rate 16 19 Respiratory Effort / Characteristics Respiratory Depth Respiratory Pattern Blood Pressure 117/65 117/65 126/69 Blood Pressure Mean 74 74 91 Pulse Oximetry 96 96 Oxygen Delivery Method Oxygen Flow Rate Sepsis Recent Fever Within 48 Hours Sepsis New/Unexplained Change in Mental Status Sepsis Action Taken by Nursing 10/21/24 14:24 10/21/24 14:36 10/21/24 14:42 Temperature Temperature Source Pulse Rate 77 74 77 Pulse Rate from SpO2 Sensor 74 78 Pulse Rhythm Pulse Strength Respiratory Rate 24 16 16 Respiratory Effort / Characteristics Respiratory Depth Respiratory Pattern Blood Pressure Blood Pressure Mean Pulse Oximetry 96 96 Oxygen Delivery Method Oxygen Flow Rate Sepsis Recent Fever Within 48 Hours Sepsis New/Unexplained Change in Mental Status Sepsis Action Taken by Nursing 10/21/24 14:54 Temperature Temperature Source Pulse Rate 74 Pulse Rate from SpO2 Sensor 75 Pulse Rhythm Pulse Strength Respiratory Rate 14 Respiratory Effort / Characteristics Respiratory Depth Respiratory Pattern Blood Pressure Blood Pressure Mean Pulse Oximetry 98 Oxygen Delivery Method Oxygen Flow Rate Sepsis Recent Fever Within 48 Hours Sepsis New/Unexplained Change in Mental Status Sepsis Action Taken by Nursing Laboratory Data 10/21/24 12:16 10/21/24 12:16 Lab Results 10/21/24 10/21/24 Range/Units 12:16 13:01 WBC 10.26 (4.8-10.8) K/ul RBC 4.11 L (4.20-5.40) M/uL Hgb 13.4 (12.0-16.0) g/dl Hct 38.3 (37.0-47.0) % MCV 93.2 (80.0-100.0) fL MCH 32.6 (25.0-34.0) pg MCHC 35.0 (32.0-36.0) g/dL RDW Std Deviation 43.6 (36.4-46.3) fL RDW Coeff of Ethan 12.7 (11.5-14.5) % Plt Count 290 (130-400) K/uL MPV 9.1 L (9.4-12.4) fL Immature Gran % (Auto) 0.6 % Neut % (Auto) 69.5 % Lymph % (Auto) 19.5 % [place] % (Auto) 6.8 % Eos % (Auto) 3.0 % Baso % (Auto) 0.6 % Neut # (Auto) 7.13 H (1.40-6.50) K/uL Lymph # (Auto) 2.00 (1.20-3.40) K/uL [place] # (Auto) 0.70 H (0.11-0.59) K/uL Eos # (Auto) 0.31 (0.00-0.50) K/uL Baso # (Auto) 0.06 (0.00-0.20) K/uL Immature Gran # (Auto) 0.06 (0.01-0.20) K/uL Sodium 136 (136-145) mmol/L Potassium 4.4 (3.5-5.1) mmol/L Chloride 105 (98-107) mmol/L Carbon Dioxide 26 (21-32) mmol/L Anion Gap 5 (3-11) BUN 19 (6-23) mg/dl Creatinine 0.82 (0.6-1.2) mg/dl Est Cr Clr Drug Dosing 53.6 ml/min eGFR 75.95 BUN/Creatinine Ratio 23.2 H (10-20) Glucose 102 H (70-99(Fasting)) mg/dl Calcium 9.8 (8.6-10.3) mg/dl Total Bilirubin 0.3 (0.2-1.0) mg/dl AST 14 (13-39) U/L ALT 10 (7-52) U/L Alkaline Phosphatase 60 (34-104) U/L Troponin I High Sens < 2.3 (0-14) pg/ml Total Protein 7.3 (6.0-8.3) gm/dl Albumin 4.3 (3.4-5.0) gm/dl Globulin 3.0 (2.5-4.0) gm/dl Albumin/Globulin Ratio 1.4 (0.9-2) Lipase 26 (11-82) U/L Urine Color Yellow Urine Appearance Clear (Clear) Urine pH 6.5 (4.5-7.5) Ur Specific [place] 1.005 (1.000-1.030) Urine Protein Negative (Negative) Urine Glucose (UA) Negative (Negative) Urine Ketones Negative (Negative) Urine Blood Negative (Negative) Urine Nitrite Negative (Negative) Urine Bilirubin Negative (Negative) Urine Urobilinogen Negative (Negative) Ur Leukocyte Esterase Negative (Negative) Urine Comment Administered Medications Discontinued Medications Ioversol (Optiray 320 100ml) 93 ml IV ONCE ONE Stop: 10/21/24 13:17 Last Admin: 10/21/24 13:16 Dose: 93 ml Documented By: JAYSON Imaging Data Radiologist's Impression: Abdomen/Pelvis CT 10/21/24 12:00 CT SCAN OF THE ABDOMEN AND PELVIS WITH IV CONTRAST CLINICAL HISTORY: Right hip groin and back pain. COMPARISON STUDY: None TECHNIQUE: Following the IV administration of 93 cc of Optiray 320, CT scan of the abdomen and pelvis is performed from the lung bases to the proximal femora. Images are reviewed in the axial, sagittal, and coronal planes. IV contrast was administered without complication. A dose lowering technique was utilized adhering to the principles of ALARA. CT DOSE: 1505.77 mGy.cm FINDINGS: Lung bases: There is respiratory motion artifact. There is no basilar consolidation. Atelectatic changes are present within the lingula. Liver: No focal masses are visualized. There is a subcentimeter calcification near the junction of the right and left hepatic lobes. Gallbladder: Unremarkable Spleen: No masses identified Pancreas: No pancreatic masses are visualized. There is no pancreatic atrophy. There is no ductal dilatation. Adrenal glands: There is mild bilateral adrenal gland thickening. Kidneys: No solid renal masses are visualized. There is a 5 mm right renal cortical cyst. No ureteral or bladder calculi are visualized. Minimal ureteral prominence is likely secondary to bladder distention Abdominal vasculature: There is no evidence of abdominal aortic aneurysm. Bowel: There are no transition zones to indicate bowel obstruction. No acute inflammatory changes are visualized. The appendix is not visualized with certainty. There are no pericecal inflammatory changes. Peritoneum: There is no free air. There is no ascites. Lymphadenopathy: There is no evidence of acute pathologic adenopathy. Pelvic viscera: There are uterine calcifications present. There are no pathologic adnexal masses. No bladder lesions are delineated. Skeletal structures: There are moderately advanced osteoarthritic changes present within both hips right more severe than left. There is evidence for subchondral cyst formation. Degenerative changes are also present within the lumbar spine. There is an old superior endplate L1 compression fracture. IMPRESSION: 1. No acute intra-abdominal or pelvic findings 2. No evidence of bowel obstruction. No evidence of free air. No acute inflammatory changes 3. No renal, ureteral, or bladder calculi identified 4. Moderately advanced osteoarthritic changes within both hips right more severe than left ACT 112: Negative or not required by law. Electronically signed by: Jose Lujan M.D. 10/21/2024 1:47 PM Chest X-Ray 10/21/24 12:42 XR chest 1V portable CLINICAL HISTORY: Psych evaluation chest x-ray COMPARISON STUDY: No previous studies for comparison. FINDINGS: The patient is hyperinflated. Underlying emphysema is suspected. There is no evidence of focal pulmonary consolidation. There are no pleural effusions. There is no failure. A 9 mm opacity within the left midlung zone, likely represents a a rib summation. If further evaluation as deemed clinically indicated, a CT scan of the chest could be obtained in follow-up IMPRESSION: 1. Hyperinflation. 2. No evidence of focal pulmonary consolidation. 3. Nonspecific 9 mm opacity within the left midlung zone. This likely represents a summation shadow. ACT 112: Negative or not required by law. Electronically signed by: Jose Lujan M.D. 10/21/2024 1:[address] 10/21/24 12:42 CT head/brain wo con CLINICAL HISTORY: 73 years-old Female with per psych. Acutely altered mental status TECHNIQUE: Multiple axial CT images of the head were obtained without contrast. A dose lowering technique was utilized adhering to the principles of ALARA. COMPARISON: None. FINDINGS: No acute intracranial hemorrhage, midline shift, intracranial mass, hydrocephalus, territorial ischemia or abnormal extra-axial collection. Involutional changes with white matter hypodensities suggestive of chronic microvascular ischemic disease. The calvarium is intact. Partially empty sella. The paranasal sinuses, mastoid air cells, and middle ear cavities are clear. IMPRESSION: No acute intracranial abnormality. ACT 112: Negative or not required by law. The above report was generated using voice recognition software. It may contain grammatical, syntax or spelling errors. Electronically signed by: Dickson Pascual M.D. 10/21/2024 1:34 PM Discharge Plan Visit Data Chief Complaint: Pain (Generalized) ED Provider: Iglesia Vu Discharge Problem: Acute hip pain, Mood disorder Condition: Fair Prescriptions Prescriptions: No Action citalopram 40 mg tablet 40 mg PO DAILY Qty: 90 3RF levothyroxine 125 mcg tablet 125 mcg PO DAILY Qty: 90 3RF omeprazole 40 mg capsule,delayed release(DR/EC) 40 mg PO DAILY Qty: 90 3RF famotidine 40 mg tablet 40 mg PO DAILY Qty: 90 3RF cholecalciferol (vitamin D3) 1,000 unit capsule 4,000 units PO DAILY triamcinolone acetonide 0.1 % cream 1 appln topical DAILY Qty: 30 2RF Discharge Problem: Acute hip pain Qualifiers: Laterality: right Qualified Code(s): M25.551 - Pain in right hip
[2024-10-21 12:44] LABS: Hematocrit (blood only) 38.3 % (37.0-47.0); Hemoglobin 13.4 g/dl (12.0-16.0); Immature Granulocytes # (auto) 0.06 K/uL (0.01-0.20); Immature Granulocytes % (auto) 0.6 %; Mean Corpuscular Hemoglobin 32.6 pg (25.0-34.0); Mean Corpuscular Volume 93.2 fL (80.0-100.0); Platelet Count 290 K/uL (130-400); RDW Standard Deviation 43.6 fL (36.4-46.3); Red Blood Count 4.11 M/uL (4.20-5.40); White Blood Count 10.26 K/ul (4.8-10.8)
[2024-10-21 12:58] LABS: Alanine Aminotransferase 10 U/L (7-52); Albumin Globulin Ratio 1.4 (0.9-2); Alkaline Phosphatase 60 U/L (34-104); Anion Gap 5 (3-11); Bilirubin,Total 0.3 mg/dl (0.2-1.0); Blood Urea Nitrogen 19 mg/dl (6-23); Calcium 9.8 mg/dl (8.6-10.3); Carbon Dioxide 26 mmol/L (21-32); Chloride 105 mmol/L (98-107); Creatinine Clr Calc Pharmacy 53.6 ml/min; Globulin 3.0 gm/dl (2.5-4.0); Glucose 102 mg/dl (70-99(Fasting)); Lipase 26 U/L (11-82); Potassium 4.4 mmol/L (3.5-5.1); Sodium 136 mmol/L (136-145); Total Protein 7.3 gm/dl (6.0-8.3)
[2024-10-21] MEDS: OPTIRAY 320 100ml IV ONE (13:16)
[2024-10-21 13:19] LABS: Appearance Urine Clear (Clear); Glucose Urine UA Negative (Negative)
--- NOTE | 2024-10-21 13:34 | XRay Report ---
XR chest 1V portable CLINICAL HISTORY: Psych evaluation chest x-ray COMPARISON STUDY: No previous studies for comparison. FINDINGS: The patient is hyperinflated. Underlying emphysema is suspected. There is no evidence of fo malik pulmonary consolidation. There are no pleural effusions. There is no failure. A 9 mm opacity with in the left midlung zone, likely represents a a rib summation. If further evaluation as deemed clinic ally indicated, a CT scan of the chest could be obtained in follow-up IMPRESSION: 1. Hyperinflation. 2. No evidence of focal pulmonary consolidation. 3. Nonspecific 9 mm opacity within the left midlung zone. This likely represents a summation shadow. ACT 112: Negative or not required by law. Electronically signed by: Jose Lujan M.D. 10/21/2024 1:31 PM
--- NOTE | 2024-10-21 13:35 | CT Scan Report ---
CT head/brain wo con CLINICAL HISTORY: 73 years-old Female with per psych. Acutely altered mental status TECHNIQUE: Multiple axial CT images of the head were obtained without contrast. A dose lowering tech nique was utilized adhering to the principles of ALARA. COMPARISON: None. FINDINGS: No acute intracranial hemorrhage, midline shift, intracranial mass, hydrocephalus, territorial ischem ia or abnormal extra-axial collection. Involutional changes with white matter hypodensities suggestiv e of chronic microvascular ischemic disease. The calvarium is intact. Partially empty sella. The paranasal sinuses, mastoid air cells, and middle ear cavities are clear. IMPRESSION: No acute intracranial abnormality. ACT 112: Negative or not required by law. The above report was generated using voice recognition software. It may contain grammatical, syntax o r spelling errors. Electronically signed by: Dickson Pascual M.D. 10/21/2024 1:34 PM
--- NOTE | 2024-10-21 13:49 | CT Scan Report ---
CT SCAN OF THE ABDOMEN AND PELVIS WITH IV CONTRAST CLINICAL HISTORY: Right hip groin and back pain. COMPARISON STUDY: None TECHNIQUE: Following the IV administration of 93 cc of Optiray 320, CT scan of the abdomen and pelvi s is performed from the lung bases to the proximal femora. Images are reviewed in the axial, sagittal , and coronal planes. IV contrast was administered without complication. A dose lowering technique wa s utilized adhering to the principles of ALARA. CT DOSE: 1505.77 mGy.cm FINDINGS: Lung bases: There is respiratory motion artifact. There is no basilar consolidation. Atelectatic martinez ges are present within the lingula. Liver: No focal masses are visualized. There is a subcentimeter calcification near the junction of th e right and left hepatic lobes. Gallbladder: Unremarkable Spleen: No masses identified Pancreas: No pancreatic masses are visualized. There is no pancreatic atrophy. There is no ductal dil atation. Adrenal glands: There is mild bilateral adrenal gland thickening. Kidneys: No solid renal masses are visualized. There is a 5 mm right renal cortical cyst. No ureteral or bladder calculi are visualized. Minimal ureteral prominence is likely secondary to bladder disten tion Abdominal vasculature: There is no evidence of abdominal aortic aneurysm. Bowel: There are no transition zones to indicate bowel obstruction. No acute inflammatory changes are visualized. The appendix is not visualized with certainty. There are no pericecal inflammatory silver es. Peritoneum: There is no free air. There is no ascites. Lymphadenopathy: There is no evidence of acute pathologic adenopathy. Pelvic viscera: There are uterine calcifications present. There are no pathologic adnexal masses. No bladder lesions are delineated. Skeletal structures: There are moderately advanced osteoarthritic changes present within both hips ri ght more severe than left. There is evidence for subchondral cyst formation. Degenerative changes are also present within the lumbar spine. There is an old superior endplate L1 compression fracture. IMPRESSION: 1. No acute intra-abdominal or pelvic findings 2. No evidence of bowel obstruction. No evidence of free air. No acute inflammatory changes 3. No renal, ureteral, or bladder calculi identified 4. Moderately advanced osteoarthritic changes within both hips right more severe than left ACT 112: Negative or not required by law. Electronically signed by: Jose Lujan M.D. 10/21/2024 1:47 PM
--- NOTE | 2024-10-21 14:41 | History & Physical Report ---
Date of Service October 21, 2024 Assessment & Plan (1) Hip pain: (2) Delusions: (3) Depression: (4) Hypothyroidism: Plan #hip painI suspect this is combination of DJD and musculoskeletal pain. Given her concerns about DVT, well nothing fits with that on exam, will check venous Dopplers for her reassurance. Offered different lines of treatment and she declined all of them. PT/OT eval and treat. #Delusional behaviorprior to my seeing her she was deemed to 302 candidate. Consult psychiatry. Appreciate guidance and assistance. Medicallywill check B12, folate, TSH. CT head appears normal. #Hypothyroidismunclear if she has been taking her levothyroxinecheck TSH. If it is markedly off, down regulate the dose to slowly bring her in line #depression uncertain if she has been taking her home meds or notcontinue for now, obviously psychiatry will be adjusting things based on their recommendations. #DVT prophylaxisLovenox. History of Present Illness Chief Complaint: Right hip pain Primary Care Provider: Marcelino Guillen MD patient is very pleasant, although quite difficult to get much of a history from. As best I can gather she came to the ER for right hip pain. Whenever asked her to describe it she describes that it feels like whenever she had a blood clot that felt up her entire leg went to her heart and lung and then exploded out of her left arm. It is really difficult to discern when it startedpossibly in the last few months, possibly for the last few years. It might have gotten worse as far as why she came to the ER today but it might have been getting worse for the last several months. She has urinary frequency with high volume but no notable burning, she asks repeatedly about blood in her urine on her urinalysis, although does not complain of hematuria. She is also been seen by psych liaison and been deemed a candidate for 302 due to numerous statements outlined in their notes. HPI and review of systems otherwise quite limited. Allergies Allergy/AdvReac Type Severity Reaction Status Date / Time homatropine Allergy Mild HYPER Verified 10/15/18 13:36 hydrocodone Allergy Mild HYPER Verified 10/15/18 13:36 amoxicillin AdvReac Mild DIARRHEA Verified 10/15/18 13:36 clavulanic acid AdvReac Mild DIARRHEA Verified 10/15/18 13:36 ANTICHOLINERGIC Allergy Mild HYPER Uncoded 10/15/18 13:36 Home Medications Medication Instructions Recorded Confirmed Type cholecalciferol (vitamin D3) 25 4,000 units PO DAILY 07/23/18 10/15/18 History mcg (1,000 unit) capsule triamcinolone acetonide 0.1 % 1 appln topical DAILY #30 grams 10/18/18 10/18/18 Rx topical cream citalopram 40 mg tablet 40 mg PO DAILY #90 tabs 09/01/19 Rx levothyroxine 125 mcg tablet 125 mcg PO DAILY #90 tabs 09/01/19 Rx omeprazole 40 mg capsule,delayed 40 mg PO DAILY #90 caps 09/01/19 Rx release famotidine 40 mg tablet 40 mg PO DAILY #90 tabs 09/16/24 Rx Past Med/Surg History Problem List (Updated 10/21/24 @ 14:38 by Iglesia Pemberton DO) Delusions Hip pain Vitamin D deficiency (Acute) Urinary incontinence (Acute) Pre-diabetes (Acute) Peripheral neuropathy (Acute) PAD (peripheral artery disease) (Acute) Mixed sensory-motor polyneuropathy (Acute) Hypothyroidism (Acute) Hypoglycemia (Acute) Hyperparathyroidism (Acute) Dyslipidemia (Acute) Depression (Acute) Silva's esophagus (Acute) Medical History History of contact dermatitis Carpal tunnel syndrome Benign familial tremor Pressure ulcer of foot, stage 2 Wound infection Osteoarthritis Urinary urgency Hiatal hernia GERD (gastroesophageal reflux disease) Hearing deficit Depression Hriwpzy-Csjzx-Bzmcq disease Cardiac murmur A CHILD Surgical History History of amputation RT FOOT TOES H/O foot surgery RT FOOT History of esophagogastroduodenoscopy (EGD) History of colonoscopy History of appendectomy History of tooth extraction History of tonsillectomy Family History Father Zizszov-Lmxnt-Ulnuo disease Coronary heart disease Leiomyoma Mother Depression Leiomyoma Thyroid disease Parkinson's disease Sister Leiomyoma Social History Smoking Status: Current every day smoker Tobacco Type: Cigarettes Cigarettes Per Day: 20 CIG DAILY; Second Hand Exposure: Yes; Do You Dip or Chew Tobacco: No; Hx Alcohol Use: No Hx Substance Use: No Preferred Language: Bengali Newspaper Editor Managing Required: No Beliefs That Will Affect Care: None Current Living Situation: Alone Feels Safe at Home: No Is there a partner from a previous relationship who is making you feel unsafe now?: No Seatbelt Use: always Assistive Devices: Brace/Splint/Immobilizer, Glasses, Walker and Wheelchair Review of Systems Review of Systems: All systems reviewed & are unremarkable except as noted in HPI & below Physical Exam Physical Exam: Awake and alert. Somewhat guarded, although pleasant and in no distress. HEENT normocephalic atraumatic mucous membranes moist. Cardio is regular rate. Breathing unlabored no accessory muscle use good effort. She has tenderness medial to her right ASIS with little bit of high muscle tone. She complains of pain in her medial thigh but does not have any higher muscle tone there. She maybe has a little bit of high tone and tender in the region of her right piriformis. No edema no palpable cords. Neuro shows cranial nerves II through XII are grossly intact gross motor and sensory intact. She expresses that her brain has been fried as one of her main problems. She is very difficult to follow and tends to jump around and timeline and complaints. Labs and diagnostics noted. Results & Data Results & Data Vital Signs (Past 12 Hours) Vital Signs Temp Pulse Resp BP Pulse Ox O2 Del Method O2 Flow Rate 10/21/24 13:30 80 19 126/69 96 10/21/24 13:00 80 16 117/65 96 10/21/24 13:00 117/65 10/21/24 13:00 83 15 117/65 98 10/21/24 13:00 80 10/21/24 12:30 80 15 134/71 99 10/21/24 12:21 78 16 98 Room Air 10/21/24 12:21 98 Room Air 0 10/21/24 12:21 98.2 F 79 14 131/77 98 Room Air Code Status & VTE Plan VTE Prophylaxis Plan VTE Prophylaxis will be ordered: Yes PG Care Time/CCT Total # of Minutes Spent Total Time Spent with Patient: Total time spent is greater than 50% in coordination of care (as documented) at patient's floor/unit and/or counseling patient: Coding Level of Care Code 33654 INT INP/OBS CARE 3/75MIN Diagnoses Hip pain M25.559 Delusions F22 Depression F32.9 Hypothyroidism E03.9
[2024-10-21] MEDS: ENOXAPARIN INJ 40 MG/0.4 ML SYR SQ SCH (16:32)
--- NOTE | 2024-10-21 16:40 | Electrocardiogram Report ---
Test Reason : Blood Pressure : */* mmHG Vent. Rate : 81 BPM Atrial Rate : 81 BPM P-R Int : 160 ms QRS Dur : 60 ms QT Int : 366 ms P-R-T Axes : -37 172 -35 degrees QTcB Int : 425 ms Unusual P axis, possible ectopic atrial rhythm Low voltage QRS Left posterior fascicular block Nonspecific ST abnormality Abnormal ECG Confirmed by Armond Farah ([id number]) on 10/21/2024 4:40:19 PM Referred By: REFERRED SELF Confirmed By: Armond Farah
[2024-10-21 17:01] LABS: Thyroid Stimulating Hormone 5.193 uIu/ml (0.300-4.500)
[2024-10-21] MEDS ORDERED: POLYETHYLENE (MIRALAX) 17 GM PACK PO PRN (17:08)
[2024-10-21] MEDS ORDERED: ONDANSETRON INJ 2 MG/ML 2 ML VIAL IV PRN (17:08)
[2024-10-21] MEDS ORDERED: MAGNESIUM HYDROXIDE SUSP 30 ML UDC PO PRN (17:08)
[2024-10-21] MEDS ORDERED: MELATONIN 3 MG TAB PO PRN (17:08)
[2024-10-21 17:49] LABS: Folate (Folic Acid),Ser orPlas 4.56 ng/ml (>5.38)
[2024-10-21 17:50] LABS: Vitamin B12 273.0 pg/ml (180-914)
--- NOTE | 2024-10-21 17:52 | Ultrasound Report ---
Technique: Venous ultrasound evaluation was performed utilizing grayscale, color Doppler and wave form evaluation. Images were also obtained with and without compression Findings: The bilateral common femoral, superficial femoral, popliteal, and visualized calf veins demonstrate normal anechoic lumens with full compressibility. Normal flow is seen on color Doppler images. Expected waveforms were produced with augmentation maneuvers Impression: No evidence of deep venous thrombosis Electronically signed by Arnold Morel 10-21-2024 5:52 PM
[2024-10-22] MEDS: LEVOTHYROXINE SODIUM 125 MCG TABLET PO SCH (05:59)
[2024-10-22] MEDS: CITALOPRAM 40 MG TAB PO SCH (05:59)
[2024-10-22] MEDS: ACETAMINOPHEN 325 MG TAB PO PRN (08:44)
[2024-10-22] MEDS: CHOLECALCIFEROL 25 MCG (1000 UNITS) TAB PO SCH (08:45)
[2024-10-22] MEDS: CYANOCOBALAMIN (B-12) 500 MCG TABLET PO SCH (08:45)
[2024-10-22] MEDS: FOLIC ACID 1 MG TAB PO SCH (08:45)
[2024-10-22] MEDS: FAMOTIDINE 20 MG TAB PO SCH (08:47)
--- NOTE | 2024-10-22 12:02 | Psychiatric Consultation ---
Date of Consultation October 22, 2024 Impression / Recommendations Impression Diagnostically consistent with unspecified psychosis, high suspicion for schizophrenia given description of lifelong paranoia and complex delusions for at least the past 20 years. We can see late onset schizophrenia in women around perimenopausal age and with her history of Charcot Zina Tooth disease there can be overlap with delusional disorders and schizophrenia possibly via a genetic link. Less suspicion for dementia related changes due to reported symptom timeline though this remains possible. She denies any substance use but no UDS done yet so ordered. TSH is elevated and folate is slightly low, no other significant labwork abnormalities to explain psychosis. Given her recent SI and ongoing distress from hallucinations she is deemed in need of inpatient psychiatric hospitalization due to increased and high risk for self-harm and due to ongoing psychosis. Was told by hospitalist provider that she is now medically clear so will pursue 302 commitment as she refuses voluntary inpatient psychiatric treatment. Overall, I spent a total of 60 minutes with this case including review of chart records, review of labwork, review of EKG QTc, direct evaluation of the patient at bedside, counseling the patient, discussion of the patient with the hospitalist provider, discussion with the psychiatric liason during clinical rounds and documentation in the electronic health record. There is a 302 petitioning statement on the chart. The patient be placed on safety precautions with 1-on-1 pending medical clearance. The patient is not psychiatrically cleared to leave the hospital without additional safety or aftercare planning; theyshould not be allowed to leave AMA without notification to our service as a 302 warrant may be appropriate. (1) Unspecified psychosis not due to a substance or known physiological condition: (2) Charcot-Zina disease: (3) Benign familial tremor: Plan -Pursue 302 commitment -She needs 1-on-1 and safety precautions -UDS ordered -Plan for inpatient psychiatric hospitalization pending COVID result and PT or nursing evaluation of level of assistance need (i.e. level of ambulation, can she independently transfer with toileting needs, etc) -She declined CHAITANYA for family or other collateral or to allow for safety planning to consider option for lower level of psychiatric care such as outpatient Psych History Identifying Data Anusha is a 73-year-old woman with a history of depression, peripheral neuropathy, hypothyroidism, HLD, possible CVA history and Tisfmjy-Accuc-Ymbem disease who presents to the ER for right hip and groin and back pain and was admitted medically for this and ED CM completed a 302 petition due to paranoia and delusions. Psychiatry consulted regarding need for 302 commitment and psychiatric treatment. Chief Complaint "I'm being AI brain blasted". History of Present Illness Anusha reports coming to the hospital due to concern for blood clots that have traveled through her body as the result of AI interference from the and FBI. She tells me "I am not crazy or delusional" and that she is not interested in any type of psychiatric treatment but goes on to discuss having suicidal ideation over the last couple of days due to "I am tired of the noise pollution". She is not able to engage in any type of safety planning nor is she agreeable to allow for any collateral information from her sons or any other trusted supports stating "they think I'm crazy to". She describes hearing constant "noise pollution" from "outside my head" that can be continuous and she attributes to AAI interference from the dean. She states she does not feel she could leave the hospital due to "I need to set up protection for myself". She does deny any command auditory hallucinations stating "no one is telling me to do bad things". Tells me she is independent in taking the bus getting her groceries and doing laundry. Unclear if she can ambulate or if she uses a wheeelchair. Describes that the symptoms have been going on since 2020 of hearing these constant noises and she is not sure why she is being targeted. 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 She tells me the only person I could contact is senator Garibay's office in [place] because she has been communicating with them about the need for increased protections regarding this interference. Further information per ED CM note from 10/21/2024: "Met with the patient to complete MH Brief Assessment due to Dr. Vu reporting the patient feels she is being followed by the FBI. The patient reports she was living in [place] and wound up with a blood clot in her abdomen that moved into her chest and caused her to have a stroke. She reports at the time she also had a bowel movement that was the size of a cow tabatha. The patient reports she knows about AI Brain Blasting and it has been used on her. She reports she can hear things in the wall, but its not in my head, only the wall. The patient presented a notarized letter (see below) with information related to her life and work experiences. The patient states she is of sound mind and doesnt want any psych meds. October 13, 2024 I Anusha queen the information I am giving you, is then Truth and nothing but the Truth so help me God. I write this letter to inform you about "blasting the brain for depression" using Al technology by the at [facility] [employer] [facility] in [place]. You may not believe what I am going to tell you, because the outside world does not know about using Al to blast the brain. First, On October 31, 2000, I went to my local FBI to make a report about information that was told to me ten years before October 30, 2000. October 30, 2000, impacted me because I witnessed the back end of the plane that flew to [place], [place] from my window at [address] [address] in [place], [place] I witnessed the back end of the plane and heard the passengers screaming, then the television picked up the screams from their affiliate station. I called the local FBI office in [facility] and met with them. The agent I met with Armond Solorzano. I told Armond Solorzano about what I was told ten years before October 30, 2000. 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 Some of the following information I was told: _about October 30, with no year that it would happen. _Madoff ponzi scheme _[place] child trafficking _[place] sexual abuse of children _the Challenger being blown out the denita, with [place] bioinformatics scientist Steve would be on board. _and, I was told Bernard Trdanita would be President in 2016. I gave this information, because I thought it was important to tell, even though I did not think anyone would believe it. 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 I had never told anyone before October 30, or after me making my report to the FBI. I had talked to LtAntonio Wilson or LtSuzanne Haley, and told him about what I told the FBI. 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 During my home visit, I found out where Scout was hiding. I returned to the office, I wrote up my report, and then was contacted by Armond and asked if I had any information. I thought for a moment, because of confidentiality, then agreed to meet with Armond and tell him verbally what Scout's niece told me. 24 hours later, our country found Scout where I described he would be. I did not tell anyone else, or my friend. 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 On April 02, 2019, I moved to [place], because my sons encouraged me to move closer to them, since I am getting older and I have grandchildren. I first moved to [facility], with no noise or voices in the wall. And at my home in [facility], I never heard noise or voices in the dean. I then moved to [place], [place] with my older son, no noises or voices in the dean. I came back to [place] after six months in [place], and was at the [facility] in [place] for three weeks, and there were no noises or voices in the dean. My whole life I have never had voices or noises in my head or in the dean. On July 24, 2020 1 was getting ready to leave [place] and could not find an apartment. Suddenly, my youngest son found an apartment at [address] [place] [address] in [place], [place]. The first six months, there were no noises or voices in the dean. In February 2020, the noises in the dean began. The noises sounded like a loan closer was giving a sermon or a rally and then singing, call to prayers, patriotic songs, and SNOW noise for three and half years. There were no voices at this time. The noises were so bad, I screamed one night, "turn that fuckin shit off'. And suddenly, the electricity in the dean loudly went down the dean and into the basement and made a "puff" sound, and I felt electricity leave my body and stopped. Enclosing, I am requesting an investigation into "brain blasting for depression" and Al technology, by the at [facility]. I have been subject to brain blasting and never signed a release or talked to the researchers about this RESEARCH AND DEVELOPMENT that I have experienced, and I am told I am not allowed to talk to them, because it is TOP SECRET. I am not allowed to know; Who signed me to this research without my knowledge, What are the researchers names, Where are these researchers located. I want Who, What, where, and why, I am being torture, My civil rights have been violated, the medical and ethics in research have been violated. These people watch my daily life, bathroom, who I talk to, they know what I am thinking without speaking. I have been told that the researchers have followed me for 25 years after October 30, 2000 without my knowledge. I hope you will take this seriously because, Al is being used in the public, and mental health services, police, do not know about this technology is being used on the personall, or me and I suspect Homeless people, since they volunteer with medical research. This is very scary and abuse of research and development, and pure torture for me. I would like Al not to be used for brain blasting on our Volunteer service members or the general public, until there are laws and regulations and license certified researchers have the ethical and medical protocols in place. I am a POW in my own country, and I have been tortured. The physical, emotional pain is torture, and I did not signed up for this research or told about it. This is unacceptable in my opinion and should not be allowed to be used. Further investigation needs to cover the use of this Al technology in the public and . Thank you for reading this, and I hope and pray you will investigate the use of Al technology being used in medical goodman, use and the general public. We need laws, regulations, and proper protection for who uses this technology, and why some people would use the brain blasting on our service members, and the public. Service members cannot say no, to the brain blasting. God Ble Magdalena Sincerely, Anusha Santiago [address] [place] [address] " Allergies Allergy/AdvReac Type Severity Reaction Status Date / Time homatropine Allergy Mild HYPER Verified 10/15/18 13:36 hydrocodone Allergy Mild HYPER Verified 10/15/18 13:36 amoxicillin AdvReac Mild DIARRHEA Verified 10/15/18 13:36 clavulanic acid AdvReac Mild DIARRHEA Verified 10/15/18 13:36 ANTICHOLINERGIC Allergy Mild HYPER Uncoded 10/15/18 13:36 Home Medications Medication Instructions Recorded Confirmed Type acetaminophen 500 mg tablet 500 mg PO Q6H PRN Pain 10/21/24 10/21/24 History (Tylenol Extra Strength) citalopram 40 mg tablet 40 mg PO QAM 10/21/24 10/21/24 History famotidine 40 mg tablet 40 mg PO HS 10/21/24 10/21/24 History levothyroxine 125 mcg tablet 125 mcg PO DAILYBB 10/21/24 10/21/24 History omeprazole 40 mg capsule,delayed 40 mg PO HS 10/21/24 10/21/24 History release Patient History Medical History History of contact dermatitis Carpal tunnel syndrome Benign familial tremor Pressure ulcer of foot, stage 2 Wound infection Osteoarthritis Urinary urgency Hiatal hernia GERD (gastroesophageal reflux disease) Hearing deficit Depression Hlxhwwa-Yklpv-Yrqzr disease Cardiac murmur A CHILD Surgical History History of amputation RT FOOT TOES H/O foot surgery RT FOOT History of esophagogastroduodenoscopy (EGD) History of colonoscopy History of appendectomy History of tooth extraction History of tonsillectomy Family History Father Gwngfpe-Aupml-Njiqf disease Coronary heart disease Leiomyoma Mother Depression Leiomyoma Thyroid disease Parkinson's disease Sister Leiomyoma Social History Smoking Status: Current every day smoker Tobacco Type: Cigarettes Cigarettes Per Day: 20 CIG DAILY; Second Hand Exposure: Yes; Do You Dip or Chew Tobacco: No; Hx Alcohol Use: No Hx Substance Use: No Preferred Language: Kyrgyz Communication Ability: Effective Lab Intern Required: No Beliefs That Will Affect Care: None Current Living Situation: Alone Feels Safe at Home: Yes Safety Concerns: Feels Safe At This Time Seatbelt Use: always Assistive Devices: Brace/Splint/Immobilizer, Glasses, Walker and Wheelchair Physical Exam Psychiatric: Orientation: alert and oriented x 3 Apperance: appropriately dressed and + disheveled Eye Contact: good eye contact Motor Behavior: + tremor (resting of neck and face and hands) Speech: normal rate/rhythm/volume of speech Affect: + anxious affect and + irritable affect Mood: + anxious mood and + irritable mood Thought Process: + perseveration Thought Content: + paranoid, + delusions and + ideas of reference Suicidal Thoughts: + reports suicidal thoughts (denies current but reports having in the last few days) Homicidal Thoughts: denies homicidal thoughts Hallucinations: + auditory hallucinations Insight: + poor insight Judgment: + limited judgement Vital Signs (Past 24 Hours): Last Vital Signs Temp 36.6 C 10/21/24 17:54 Pulse 69 10/22/24 09:56 Resp 15 10/22/24 09:56 BP 119/59 L 10/22/24 09:56 Pulse Ox 97 10/22/24 09:56 O2 Del Method Room Air 10/22/24 09:56 O2 Flow Rate 0 10/21/24 12:21 Results & Data (PSY) Medications Administered Acetaminophen (Acetaminophen 325 Mg Tab) 650 mg PO Q4H PRN PRN Reason: pain/fever Stop: 11/20/24 17:07 Last Admin: 10/22/24 08:44 Dose: 650 mg Documented By: ML Citalopram Hydrobromide (Citalopram 40 Mg Tab) 40 mg PO DAILY GEOVANNA Stop: 11/21/24 08:59 Last Admin: 10/22/24 05:59 Dose: 40 mg Documented By: MG Cyanocobalamin (Cyanocobalamin (B-12) 500 Mcg Tablet) 1,000 mcg PO QAM GEOVANNA Stop: 11/21/24 08:59 Last Admin: 10/22/24 08:45 Dose: 1,000 mcg Documented By: ML Enoxaparin Sodium (Enoxaparin Inj 40 Mg/0.4 Ml Syr) 40 mg SQ Q24H GEOVANNA Stop: 11/20/24 16:59 Last Admin: 10/21/24 16:32 Dose: Not Given Documented By: MMG Famotidine (Famotidine 20 Mg Tab) 40 mg PO DAILY GEOVANNA Stop: 11/21/24 08:59 Last Admin: 10/22/24 08:47 Dose: 40 mg Documented By: ML Folic Acid (Folic Acid 1 Mg Tab) 1 mg PO QAM GEOVANNA Stop: 11/21/24 08:59 Last Admin: 10/22/24 08:45 Dose: 1 mg Documented By: ML Levothyroxine Sodium (Levothyroxine Sodium 125 Mcg Tablet) 125 mcg PO DAILYBB GEOVANNA Stop: 11/21/24 06:29 Last Admin: 10/22/24 05:59 Dose: 125 mcg Documented By: MG Pantoprazole Sodium (Pantoprazole 40 Mg Tab) 40 mg PO DAILY GEOVANNA Stop: 11/21/24 08:59 Last Admin: 10/22/24 08:45 Dose: 40 mg Documented By: ML Vitamin D (Cholecalciferol 25 Mcg (1000 Units) Tab) 25 mcg PO DAILY GEOVANNA Stop: 11/21/24 08:59 Last Admin: 10/22/24 08:45 Dose: 25 mcg Documented By: ILIA Coding Level of Care Code 45236 IN/OBS CONSULT LVL 4,60M Diagnoses Unspecified psychosis not due to a substance or known physiological condition F29 Charcot-Zina disease G60.0 Benign familial tremor G25.0
--- NOTE | 2024-10-22 14:49 | Hospitalist Progress Note ---
Date of Service October 22, 2024 Assessment & Plan (1) Hip pain: Plan: Involving right side. Probably arthritic in nature. Symptomatic management. Venous Doppler both legs negative for DVT (2) Delusions: Plan: The patient has been seen by psychiatry. Inpatient treatment has been recommended. One-on-one supervision has been ordered. 302 process is underway (3) Depression: Plan: By history (4) Hypothyroidism: Plan: Stable. Continue current medical management Plan Eventual inpatient psychiatric treatment. One-on-one supervision has been ordered and 302 process is underway Admission and Anticipated Discharge Date Admission Date: October 21, 2024 Subjective Alert. No new problems. Fortunately, her bilateral lower extremity venous Dopplers are negative for DVT. She has been seen by psychiatry who feels that inpatient psychiatric treatment is required. One-on-one supervision has been requested along with 302 evaluation. She does have ambulatory dysfunction and OT and PT assessments have been requested Review of Systems 2 Review of Systems: The patient cannot reliably answer any questions regarding review of systems at this time Physical Exam 2 Physical Exam: General-alert but delusional. No fever HEENT-head atraumatic and normocephalic, pupils equal and reactive to light, extraocular muscles intact Neck-no lymphadenopathy or thyromegaly, trachea midline Chest-clear to auscultation. No rales, wheezing or rhonchi Cardiac-regular rate and rhythm, normal S1 and S2 Abdomen-normal bowel sounds, no hepatosplenomegaly Extremities-no cyanosis, clubbing, or edema Neuro-cranial nerves II through XII intact, motor and sensory function within normal limits, strength symmetrical, no focal deficits Psych-delusional Results & Data Results & Data Vital Signs (Past 12 Hours) Vital Signs Pulse Resp BP BP Pulse Ox O2 Del Method 10/22/24 13:36 96 10/22/24 13:36 71 16 111/59 L 96 Room Air 10/22/24 12:02 144/42 H 10/22/24 09:56 69 15 119/59 L 97 Room Air 10/22/24 09:55 119/59 L 10/22/24 07:46 86 17 112/57 L 98 Room Air Laboratory Results 10/21/24 12:16 10/21/24 12:16 PG Care Time/CCT Total # of Minutes Spent Total Time Spent with Patient: Total time spent is greater than 50% in coordination of care (as documented) at patient's floor/unit and/or counseling patient: Coding Level of Care Code 03056 SUB INP/OBS CARE 50MIN Diagnoses Hip pain M25.559 Delusions F22 Depression F32.9 Hypothyroidism E03.9
[2024-10-22 18:34] VITALS: TEMP 97.7
[2024-10-22 21:21] LABS: Amphetamines+Metham, Urine Neg (Neg); MDMA (Ecstacy), Urine Neg (Neg); Marijuana, Urine Neg (Neg)
[2024-10-22] MEDS: NICOTINE 21 MG/24 HR TDSY TD SCH (21:39)
[2024-10-22] MEDS: HALOPERIDOL LACTATE 5 MG/ML 1 ML VIAL IM STA (22:54)
[2024-10-22] MEDS: LORazepam 1 MG/1 ML SYR ED Inj Use ONE ×2 (22:55)
[2024-10-22] MEDS: HALOPERIDOL LACTATE 5 MG/ML 1 ML VIAL ONE (22:55)
[2024-10-23] MEDS: HALOPERIDOL LACTATE 5 MG/ML 1 ML VIAL IM STA (00:48)
[2024-10-23] MEDS: HALOPERIDOL LACTATE 5 MG/ML 1 ML VIAL ONE (00:51)
[2024-10-23] MEDS: REMOVE NICODERM PATCH SCH (12:03)
--- NOTE | 2024-10-23 12:16 | Hospitalist Progress Note ---
Date of Service October 23, 2024 Assessment & Plan (1) Hip pain: Plan: Involving right side. Probably arthritic in nature. Symptomatic management. Venous Doppler both legs negative for DVT (2) Delusions: Plan: The patient has been seen by psychiatry. Inpatient treatment has been recommended. One-on-one supervision has been ordered. 302 process is underway (3) Depression: Plan: By history (4) Hypothyroidism: Plan: Stable. Free T3 and free T4 levels are normal. Continue current medical management Plan Awaiting Tran psych inpatient placement. Admission and Anticipated Discharge Date Admission Date: October 21, 2024 Subjective The patient is asleep at the time of my rounds. Fortunately her COVID nasal swab is negative. Psychiatry has stated she will probably need Tran psych placement and proceedings are underway. Thyroid profile is unremarkable. Review of Systems 2 Review of Systems: The patient cannot reliably answer any questions regarding review of systems at this time Physical Exam 2 Physical Exam: General-sleeping. No fever HEENT-head atraumatic and normocephalic, pupils equal and reactive to light, extraocular muscles intact Neck-no lymphadenopathy or thyromegaly, trachea midline Chest-clear to auscultation. No rales, wheezing or rhonchi Cardiac-regular rate and rhythm, normal S1 and S2 Abdomen-normal bowel sounds, no hepatosplenomegaly Extremities-no cyanosis, clubbing, or edema Neuro-sleeping. Cannot assess Psych-sleeping. Cannot assess Results & Data Results & Data Vital Signs (Past 12 Hours) Vital Signs Pulse Pulse Resp BP BP Pulse Ox O2 Del Method 10/23/24 08:00 75 16 114/48 L 97 Room Air 10/23/24 02:33 82 18 108/53 L 93 Room Air Laboratory Results 10/21/24 12:16 10/21/24 12:16 PG Care Time/CCT Total # of Minutes Spent Total Time Spent with Patient: Total time spent is greater than 50% in coordination of care (as documented) at patient's floor/unit and/or counseling patient: Coding Level of Care Code 55584 SUB INP/OBS CARE 2/35MIN Diagnoses Hip pain M25.559 Delusions F22 Depression F32.9 Hypothyroidism E03.9
--- NOTE | 2024-10-23 12:16 | Psychiatric Progress Note ---
Date of Service October 23, 2024 Impression / Recommendations Impression Diagnostically consistent with unspecified psychosis, high suspicion for schizophrenia given description of lifelong paranoia and complex delusions for at least the past 20 years as well as depression with suicidal ideation due to distress from hallucinations. We can see late onset schizophrenia in women around perimenopausal age and with her history of Charcot Zina Tooth disease there can be overlap with delusional disorders and schizophrenia possibly via a genetic link. Less suspicion for dementia related changes due to reported symptom timeline though this remains possible. She denies any substance use and UDS was negative. A: Ongoing psychosis with SI. She refused to participate in attempts to safety plan or establish additional supports or resources to allow for lower level of care. She is not interested in any psychiatric medications so will not start a po option at this point as it could lead to increased agitation and distrust and further disrupt ongoing efforts to build therapeutic alliance to allow for safety planning if she'll cooperate with this given her strong desire to avoid inpatient hospitalization. Unfortunately she remains distrustful and unwilling to participate in any meaningful way today and continues to endorse suicidal ideation. It's very challenging to assess her level of intent or specific plans for suicide given her unwillingness to participate with interview questions and alternating statements (i.e. tells me she wants to then states she wouldn't kill herself) but she remains at high risk given emotional reactivity and acute emotional dysregulation, ongoing psychosis with paranoia and delusions, distress from hallucinations, lack of outpatient providers and unwillingness for any referrals or involvement of supports, poor coping skills and difficulty establishing therapeutic alliance. The patient remains hospitalized on a completed 302 involuntary commitment, which if not extended, will on 10/27/2024 @ 1430. This patient must remain on safety precautions with a 1-on-1 and is unable to leave the hospital AMA. Overall, I spent a total of 45 minutes with this case including review of chart records, review of labwork, direct evaluation of the patient at bedside, counseling the patient, discussion of the patient with the Nurse and with the hospitalist provider, discussion with the psychiatric liason during clinical rounds and documentation in the electronic health record. 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: Plan 10/23/2024 -Remains on 302 commitment, she cannot leave AMA, if she attempts to do so call psych liason and security -Continue 1-on-1 and safety precautions -Psych liason completing psychiatric bed search, likely will require geriatric psychiatry but awaiting PT input regarding level of assistance supervisor blood devices required (uses a wheelchair at home) -Continued effort to safety plan with her, she refuses to participate and continues to refuse to sign any ROIs to allow for us to get family input or to establish outpatient supports/follow-up -For behavioral emergency: olanzapine 5 mg IM x 1 (DO NOT exceed 10mg per 24 hours, check EKG if IM dose required, NEVER co-administer with IM or IV benzodiazepines) OR haldol 5mg IM and ativan 2mg IM 10/22/2024 -Pursue 302 commitment -She needs 1-on-1 and safety precautions -UDS ordered -Plan for inpatient psychiatric hospitalization pending COVID result and PT or nursing evaluation of level of assistance need (i.e. level of ambulation, can she independently transfer with toileting needs, etc) -She declined CHAITANYA for family or other collateral or to allow for safety planning to consider option for lower level of psychiatric care such as outpatient Interval History Identifying Information Anusha is a 73-year-old woman with a history of depression, peripheral neuropathy, hypothyroidism, HLD, possible CVA history and Jtpabee-Fujdu-Olxvi disease who presents to the ER for right hip and groin and back pain and was admitted medically for this and ED CM completed a 302 petition due to paranoia and delusions. Psychiatry consulted regarding need for 302 commitment and psychiatric treatment. Chief Complaint "If you'd been through the h*ll I deal with you'd be suicidal too". Subjective Subjective Patient was seen & assessed and interval progress reviewed. Periods of agitation overnight, required IM medication-haldol and ativan. Today she is initially sleeping, wakes to verbal prompting and agrees to speak with me rather than my offer to return later in the day so she can continue to rest. Expresses her frustration with not being able to leave and events overnight including having to change her clothes and "disgusting" turkey sandwich stating "the food here is terrible" and "[facility] [employer] She then makes some rude comments, mocks me at times. Despite this attempted to discuss her current symptoms and reason for 302 commitment. She disregards concerns about her safety in referencing her comments from yesterday and again today about her stating that I would also feel suicidal if I experienc e what she goes through and that "if you'd been through what I've had done you'd want to ". Later tells me she doesn't want to "kill myself" but then as I attempt to explore this further with her, and safety plan due to ongoing remarks about depression and suicidality she refuses. Asked about reasons for living she states "none of your business". Attempts to explore modifiable risk factors or p rotective factors are similarly met with resistance, rude comments or her questioning the credentials of the psychiatric liason and I. Shared this information with her in an attempt to reassure her that we could be trusted but she continued to refuse to engage in any discussions about safety planning. She is able to deny having any access to guns. Cannot or will not tell me about her past psychiatric history instead states "you must have called someone, I bet you talked with Miri!" seemingly referencing someone who she believes has concerns about her. I confirmed that I have not spoken to anyone as she has not signed any ROIs but that I would be happy to talk to anyone who she thinks could be a support or could help confirm they have no safety concerns or could be an outpatient support to lessen her risk for suicide. She remains uninterested in any psychiatric or outpatient therapy options. She then became focused on her desire to dayanara me for the 302 commitment and continued to yell at me. I reminded her that I could attempt to return later in the day should she become interested in participating with further interview about safety concerns or lack there of and protective factors and engaging in safety planning. Physical Exam Vital Signs (Past 24 Hours) Last Vital Signs Temp 36.5 C 10/22/24 18:33 Pulse 75 10/23/24 08:00 Resp 16 10/23/24 08:00 BP 114/48 L 10/23/24 08:00 Pulse Ox 97 10/23/24 08:00 O2 Del Method Room Air 10/23/24 08:00 O2 Flow Rate 0 10/21/24 12:21 Results & Data ([facility]) Laboratory Results Laboratory Results - last 24 hr 10/22/24 10/22/24 10/22/24 13:01 13:03 20:21 Free T4 Free T3 Urine Opiates Screen Cancelled Neg Ur Methadone, Qual Cancelled Neg Urine Fentanyl Screen Cancelled Neg Urine Barbiturates Cancelled Neg Ur Phencyclidine (PCP) Cancelled Neg U Amphetamin/Meth Scrn Cancelled Neg MDMA (Ecstasy) Screen Cancelled Neg U Benzodiazepines Scrn Cancelled Neg Ur Cocaine Metabolite Cancelled Neg U Marijuana (THC) Screen Cancelled Neg SARS-CoV-2, RNA, NAAT NEGATIVE 10/23/24 09:58 Free T4 0.87 Free T3 2.94 Urine Opiates Screen Ur Methadone, Qual Urine Fentanyl Screen Urine Barbiturates Ur Phencyclidine (PCP) U Amphetamin/Meth Scrn MDMA (Ecstasy) Screen U Benzodiazepines Scrn Ur Cocaine Metabolite U Marijuana (THC) Screen SARS-CoV-2, RNA, NAAT Current Inpatient Medications Current Inpatient Medications: Current Inpatient Medications Acetaminophen (Acetaminophen 325 Mg Tab) 650 mg PO Q4H PRN PRN Reason: pain/fever Stop: 11/20/24 17:07 Last Admin: 10/22/24 21:38 Dose: 650 mg Al Hydrox/Mg Hydrox/Simethicone (Aluminum/Magnesium Susp 30 Ml Udc) 30 ml PO Q6H PRN PRN Reason: Dyspepsia Stop: 11/20/24 17:07 Citalopram Hydrobromide (Citalopram 40 Mg Tab) 40 mg PO DAILY [facility] Stop: 11/21/24 08:59 Last Admin: 10/23/24 08:37 Dose: 40 mg Cyanocobalamin (Cyanocobalamin (B-12) 500 Mcg Tablet) 1,000 mcg PO QAM [facility] Stop: 11/21/24 08:59 Last Admin: 10/23/24 09:48 Dose: Not Given Enoxaparin Sodium (Enoxaparin Inj 40 Mg/0.4 Ml Syr) 40 mg SQ Q24H [facility] Stop: 11/20/24 16:59 Last Admin: 10/22/24 17:54 Dose: Not Given Famotidine (Famotidine 20 Mg Tab) 40 mg PO DAILY [facility] Stop: 11/21/24 08:59 Last Admin: 10/23/24 11:27 Dose: Not Given Folic Acid (Folic Acid 1 Mg Tab) 1 mg PO QAM [facility] Stop: 11/21/24 08:59 Last Admin: 10/23/24 09:48 Dose: Not Given Levothyroxine Sodium (Levothyroxine Sodium 125 Mcg Tablet) 125 mcg PO DAILYBB [facility] Stop: 11/21/24 06:29 Last Admin: 10/23/24 09:24 Dose: 125 mcg Magnesium Hydroxide (Magnesium Hydroxide Susp 30 Ml Udc) 30 ml PO Q6H PRN PRN Reason: Constipation Stop: 11/20/24 17:07 Melatonin (Melatonin 3 Mg Tab) 3 mg PO HS PRN PRN Reason: Insomnia Stop: 11/20/24 17:07 Miscellaneous (Remove Nicoderm Patch) 1 each N/A DAILY@0859 [facility] Stop: 11/22/24 08:58 Nicotine (Nicotine 21 Mg/24 Hr Tdsy) [facility] Stop: 11/21/24 19:59 Last Admin: 10/22/24 21:39 Dose: Not Given Ondansetron HCl (Ondansetron Inj 2 Mg/Ml 2 Ml Vial) 4 mg IV Q6H PRN PRN Reason: Nausea Stop: 11/20/24 17:07 Pantoprazole Sodium (Pantoprazole 40 Mg Tab) 40 mg PO DAILY [facility] Stop: 11/21/24 08:59 Last Admin: 10/23/24 09:49 Dose: Not Given Polyethylene Glycol (Polyethylene (Miralax) 17 Gm Pack) 17 gm PO DAILY PRN PRN Reason: Constipation Stop: 11/20/24 17:07 Vitamin D (Cholecalciferol 25 Mcg (1000 Units) Tab) 25 mcg PO DAILY [facility] Stop: 11/21/24 08:59 Last Admin: 10/23/24 09:48 Dose: Not Given
[2024-10-23 15:57] VITALS: RESP 16
[2024-10-23 23:19] VITALS: PULSE 69; O2SAT 96
[2024-10-24] MEDS: ALUMINUM/MAGNESIUM SUSP 30 ML UDC PO PRN (03:19)
--- NOTE | 2024-10-24 13:24 | Hospitalist Progress Note ---
Date of Service October 24, 2024 Assessment & Plan (1) Hip pain: Plan: Involving right side. Probably arthritic in nature. Symptomatic management. Venous Doppler both legs negative for DVT (2) Delusions: Plan: The patient has been seen by psychiatry. Inpatient treatment has been recommended. One-on-one supervision has been ordered. 302 status. She did not express any suicidal ideation to me today, October 24 (3) Depression: Plan: By history (4) Hypothyroidism: Plan: Stable. Free T3 and free T4 levels are normal. Continue current medical management Plan Awaiting Tran psych inpatient placement or possibly discharge to home if psychiatry approves Admission and Anticipated Discharge Date Admission Date: October 21, 2024 Subjective The patient is alert. She is asking me why she has to stay in the hospital. Psychiatry will see her again today and she may possibly be discharged to her home if she no longer has any suicidal ideation which she has not expressed to me. Review of Systems 2 Review of Systems: Constitutionalno fever or chills ENTno blurred vision, no double vision, no epistaxis, no sore throat Respiratoryno cough, no wheezing, no shortness of breath Cardiacno palpitations, no chest pain, no syncope Lorie nausea, vomiting, diarrhea, melena, hematochezia GUno urinary retention, no urinary incontinence, no dysuria, no hematuria Musculoskeletalno joint pain, no muscle tenderness Skinno bruising, no rashes, no pruritus Neurono isolated weakness, no paresthesia, no weakness Psychno depression, no anxiety Physical Exam 2 Physical Exam: General-alert and oriented x3, no fever, no chills HEENT-head atraumatic and normocephalic, pupils equal and reactive to light, extraocular muscles intact Neck-no lymphadenopathy or thyromegaly, trachea midline Chest-clear to auscultation. No rales, wheezing or rhonchi Cardiac-regular rate and rhythm, normal S1 and S2 Abdomen-normal bowel sounds, no hepatosplenomegaly Extremities-no cyanosis, clubbing, or edema Neuro-cranial nerves II through XII intact, motor and sensory function within normal limits, strength symmetrical, no focal deficits Psych-normal affect, normal mood Results & Data Results & Data Laboratory Results 10/21/24 12:16 10/21/24 12:16 PG Care Time/CCT Total # of Minutes Spent Total Time Spent with Patient: Total time spent is greater than 50% in coordination of care (as documented) at patient's floor/unit and/or counseling patient: Coding Level of Care Code 41161 SUB INP/OBS CARE 2/35MIN Diagnoses Hip pain M25.559 Delusions F22 Depression F32.9 Hypothyroidism E03.9
--- NOTE | 2024-10-24 13:35 | Psychiatric Progress Note ---
Date of Service October 24, 2024 Impression / Recommendations Impression Diagnostically consistent with unspecified psychosis, high suspicion for schizophrenia given description of lifelong paranoia and complex delusions for at least the past 20 years as well as depression with suicidal ideation due to distress from hallucinations vs schizotypal personality disorder vs delusional disorder. We can see late onset schizophrenia in women around perimenopausal age and with her history of Charcot Zina Tooth disease there can be overlap with delusional disorders and schizophrenia possibly via a genetic link. Less suspicion for dementia related changes due to reported symptom timeline though this remains possible. She denies any substance use and UDS was negative. A: No evidence for acute psychosis today and denying SI and denying depressive symptoms with brighter affect and able to participate in safety planning. She completed a safety plan which is appropriate and reality-based. No longer meets 302 criteria as she is no longer deemed an acute safety risk and can meet her b asic needs and she is not interested in any voluntary inpatient psychiatric treatment nor outpatient psychiatric referrals. Acute risk is low given improvement in mood and denial of SI, lack of access to lethal means, hopefulness and some improvement in psychosis. Chronic risk is moderate to high given multiple non-modifiable risk factors periods of impulsivity, emotional reactivity, chronic illness, schizophrenia but also with a few protective factors including good social support, some capacity for self- observation. Counseled on ways to reduce acute and chronic risk including engaging and considering increasing her outpatient providers, using safety plan if needed, utilizing supports. As of now there is no clear acute/imminent risk of harm to self however, based upon any emergence of increased distress from hallucinations and re-emergence of SI, the chronic risk may then transform into a period of acuity. Provided education and recommendations of treatment options and behavioral strategies including outpatient psychiatric treatment, distraction & listening to music if hallucinations occur which can help to reduce their acute and chronic risk. Also discussed resources and ways to add additional protective factors and positive supports to their life to reduce elements of chronic risk. Overall, I spent a total of 50 minutes with this case including review of chart records, review of labwork, direct evaluation of the patient at bedside, counseling the patient, discussion of the patient with the Nurse and with the hospitalist provider, discussion with the psychiatric liason during clinical rounds and documentation in the electronic health record. (1) Depression with suicidal ideation: (2) Unspecified psychosis not due to a substance or known physiological condition: (3) Charcot-Zina disease: Plan 10/24/2024: -No longer meets 302 commitment criteria given denial of SI and engagement in safety planning -Doesn't require 1-on-1 or suicide precautions -Safe for discharge from psychiatric standpoint -Safety planning and crisis information reviewed -She continues to decline involvement of family/supports or outpatient referrals but states comfort calling local [place] access should she desire an outpatient mental health case management, therapist or psychiatrist in the fu ture 10/23/2024 -Remains on 302 commitment, she cannot leave AMA, if she attempts to do so call psych liason and security -Continue 1-on-1 and safety precautions -Psych liason completing psychiatric bed search, likely will require geriatric psychiatry but awaiting PT input regarding level of assistance 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 (uses a wheelchair at home) -Continued effort to safety plan with her, she refuses to participate and continues to refuse to sign any ROIs to allow for us to get family input or to establish outpatient supports/follow-up -For behavioral emergency: olanzapine 5 mg IM x 1 (DO NOT exceed 10mg per 24 hours, check EKG if IM dose required, NEVER co-administer with IM or IV benzodiazepines) OR haldol 5mg IM and ativan 2mg IM 10/22/2024 -Pursue 302 commitment -She needs 1-on-1 and safety precautions -UDS ordered -Plan for inpatient psychiatric hospitalization pending COVID result and PT or nursing evaluation of level of assistance need (i.e. level of ambulation, can she independently transfer with toileting needs, etc) -She declined CHAITANYA for family or other collateral or to allow for safety planning to consider option for lower level of psychiatric care such as outpatient Interval History Identifying Information Anusha is a 73-year-old woman with a history of depression, peripheral neuropathy, hypothyroidism, HLD, possible CVA history and Oeksllq-Xyuwn-Kxhyt disease who presents to the ER for right hip and groin and back pain and was admitted medically for this and ED CM completed a 302 petition due to paranoia and delusions. Psychiatry consulted regarding need for 302 commitment and psychiatric treatment. Chief Complaint "No I'm not and I never did". Subjective Subjective Patient was seen & assessed and interval progress reviewed. Brighter affect, no behavioral events overnight. Eating her meals and attending to toileting and hygiene needs. Completed safety plan. Denies SI. Today reports she is not suicidal and "never did" have those thoughts. Tells me if she's in crisis or develops SI in the future or feels distress from noises she will reach out to her friend. Tells me she has reasons for living including "I want to live to at least 83" and has very future-oriented plans including paying her apartment rent bill and shopping. Expresses regret with changes to [facility] with taller buildings. Continues to decline involvement of any other supports or for us to set her up with outpatient resources stating "I'm not interested in you setting that up, if I want to do that I'll call [facility]". Remains eager for discharge, and she feels safe going home. Physical Exam Psychiatric Apperance: appropriately dressed Eye Contact: good eye contact Motor Behavior: no abnormal motor movements Speech: normal rate/rhythm/volume of speech Affect: euthymic affect Mood: no depressed mood, no anxious mood and no irritable mood Thought Process: goal directed thought process Thought Content: reality based without delusions Suicidal Thoughts: denies suicidal thoughts Homicidal Thoughts: denies homicidal thoughts Insight: + fair insight Judgment: + fair judgement Vital Signs (Past 24 Hours) Last Vital Signs Temp 36.5 C 10/22/24 18:33 Pulse 69 10/23/24 23:15 Resp 16 10/23/24 23:15 BP 89/47 L 10/23/24 23:15 Pulse Ox 96 10/23/24 23:15 O2 Del Method Room Air 10/23/24 23:15 O2 Flow Rate 0 10/21/24 12:21 Results & Data ([facility]) Current Inpatient Medications Current Inpatient Medications: Current Inpatient Medications Acetaminophen (Acetaminophen 325 Mg Tab) 650 mg PO Q4H PRN PRN Reason: pain/fever Stop: 11/20/24 17:07 Last Admin: 10/23/24 17:19 Dose: 650 mg Al Hydrox/Mg Hydrox/Simethicone (Aluminum/Magnesium Susp 30 Ml Udc) 30 ml PO Q6H PRN PRN Reason: Dyspepsia Stop: 11/20/24 17:07 Last Admin: 10/24/24 03:19 Dose: 30 ml Citalopram Hydrobromide (Citalopram 40 Mg Tab) 40 mg PO DAILY [facility] Stop: 11/21/24 08:59 Last Admin: 10/24/24 09:11 Dose: 40 mg Cyanocobalamin (Cyanocobalamin (B-12) 500 Mcg Tablet) 1,000 mcg PO QAM [facility] Stop: 11/21/24 08:59 Last Admin: 10/24/24 09:42 Dose: 1,000 mcg Enoxaparin Sodium (Enoxaparin Inj 40 Mg/0.4 Ml Syr) 40 mg SQ Q24H [facility] Stop: 11/20/24 16:59 Last Admin: 10/23/24 17:17 Dose: Not Given Famotidine (Famotidine 20 Mg Tab) 40 mg PO DAILY [facility] Stop: 11/21/24 08:59 Last Admin: 10/24/24 05:00 Dose: 40 mg Folic Acid (Folic Acid 1 Mg Tab) 1 mg PO QAM [facility] Stop: 11/21/24 08:59 Last Admin: 10/24/24 09:42 Dose: 1 mg Levothyroxine Sodium (Levothyroxine Sodium 125 Mcg Tablet) 125 mcg PO DAILYBB [facility] Stop: 11/21/24 06:29 Last Admin: 10/24/24 09:11 Dose: 125 mcg Magnesium Hydroxide (Magnesium Hydroxide Susp 30 Ml Udc) 30 ml PO Q6H PRN PRN Reason: Constipation Stop: 11/20/24 17:07 Melatonin (Melatonin 3 Mg Tab) 3 mg PO HS PRN PRN Reason: Insomnia Stop: 11/20/24 17:07 Miscellaneous (Remove Nicoderm Patch) 1 each N/A DAILY@0859 [facility] Stop: 11/22/24 08:58 Last Admin: 10/24/24 07:33 Dose: Not Given Nicotine (Nicotine 21 Mg/24 Hr Tdsy) 1 patch TD QAM [facility] Stop: 11/21/24 19:59 Last Admin: 10/24/24 09:00 Dose: Not Given Ondansetron HCl (Ondansetron Inj 2 Mg/Ml 2 Ml Vial) 4 mg IV Q6H PRN PRN Reason: Nausea Stop: 11/20/24 17:07 Pantoprazole Sodium (Pantoprazole 40 Mg Tab) 40 mg PO DAILY [facility] Stop: 11/21/24 08:59 Last Admin: 10/24/24 05:00 Dose: 40 mg Polyethylene Glycol (Polyethylene (Miralax) 17 Gm Pack) 17 gm PO DAILY PRN PRN Reason: Constipation Stop: 11/20/24 17:07 Vitamin D (Cholecalciferol 25 Mcg (1000 Units) Tab) 25 mcg PO DAILY [facility] Stop: 11/21/24 08:59 Last Admin: 10/24/24 09:42 Dose: 25 mcg
--- NOTE | 2024-10-24 13:45 | Discharge Summary ---
Discharge Summary Date of Service October 24, 2024 Principal Dx & Hospital Course #1 = Principal Diagnosis (1) Hip pain: Involving right side. Probably arthritic in nature. Symptomatic management. Venous Doppler both legs negative for DVT (2) Delusions: The patient has been seen by psychiatry. She also had suicidal ideations on admission which have since resolved. She was placed on one-on-one supervision while hospitalized. 302 status has now been discontinued (3) Depression: By history (4) Hypothyroidism: Stable. Free T3 and free T4 levels are normal. Continue current medical management Plan She is able to be discharged home today per psychiatry, October 24 Admission HPI Per Admitting Provider patient is very pleasant, although quite difficult to get much of a history from. As best I can gather she came to the ER for right hip pain. Whenever asked her to describe it she describes that it feels like whenever she had a blood clot that felt up her entire leg went to her heart and lung and then exploded out of her left arm. It is really difficult to discern when it startedpossibly in the last few months, possibly for the last few years. It might have gotten worse as far as why she came to the ER today but it might have been getting worse for the last several months. She has urinary frequency with high volume but no notable burning, she asks repeatedly about blood in her urine on her urinalysis, although does not complain of hematuria. She is also been seen by psych liaison and been deemed a candidate for 302 due to numerous statements outlined in their notes. HPI and review of systems otherwise quite limited. Discharge Exam General-alert and oriented x3, no fever, no chills HEENT-head atraumatic and normocephalic, pupils equal and reactive to light, extraocular muscles intact Neck-no lymphadenopathy or thyromegaly, trachea midline Chest-clear to auscultation. No rales, wheezing or rhonchi Cardiac-regular rate and rhythm, normal S1 and S2 Abdomen-normal bowel sounds, no hepatosplenomegaly Extremities-no cyanosis, clubbing, or edema Neuro-cranial nerves II through XII intact, motor and sensory function within normal limits, strength symmetrical, no focal deficits Psych-normal affect, normal mood Discharge Plan Discharge Items Patient Disposition: Home - Self-Care Reason For Visit: HIP PAIN Discharge Diagnosis: Suicidal ideation, acute psychosis, chronic schizophrenia, right hip pain Condition on Discharge: Fair Activity: Resume your previous activity Non-emergency contact: Primary Care Provider and Psychiatrist Call non-emergency contact if: your symptoms worsen Follow-up/Referrals: Marcelino Guillen MD [Primary Care Provider] - Diet: Regular Addtl Attending Provider Instructions: Follow-up with psychiatrist is highly recommended. See your primary care provider soon as possible Pending Studies at Discharge: No Stand-Alone Forms: My [facility] [place], Smoking Cessation Medications and DC Order Prescriptions: Continued citalopram 40 mg tablet 40 mg PO QAM famotidine 40 mg tablet 40 mg PO HS omeprazole 40 mg capsule,delayed release(DR/EC) 40 mg PO HS levothyroxine 125 mcg tablet 125 mcg PO DAILYBB acetaminophen [Tylenol Extra Strength] 500 mg Tablet 500 mg PO Q6H PRN (Reason: Pain) Discharge Orders: Discharge Order (Routine); Ordered 10/24/24 Ordered By: Akil Rodriguez Admission Data Admit Date/Time: 10/21/24 14:32 Attending Provider: Akil Rodriguez Admit Provider: Iglesia Pemberton Primary Care Provider: Marcelino Guillen Other Providers: Desiree Zaman; Joselito Sheffield; Magdalena Mckoy; Magy Gorman; Randy Medrano; Amber Summers; Marta Hanna; Griselda Smith; Iglesia Pemberton Hospital Stay Data Consultations 10/21/24 13:59 ED Decision to Admit Stat 10/21/24 14:32 Consult Psychiatry Routine Diagnostic Imagining Performed 10/21/24 12:00 CT abd pelvis IV con only Stat 10/21/24 12:42 CT head/brain wo con Stat 10/21/24 16:13 US venous doppler LE BI Urgent Pending Results Patient Have Any Pending Studies at Discharge: No Discharge Instructions Given to Patient (Per Discharging Provider) Follow-up with psychiatrist is highly recommended. See your primary care provider soon as possible Total Time Total Time Spent Total Time Spent (In Minutes): 45 minutes Coding Level of Care Code 97960 INP/OBS DISCH >30 MIN Diagnoses Hip pain M25.559 Delusions F22 Depression F32.9 Hypothyroidism E03.9
[2024-10-24 14:32] VITALS: BP 96/67
== END 2024-10-24 16:00 | disposition home or self-care (01) | DRG 554 ==
LOC: ED 11:49 → EDINP 14:32 → SUATTDRO 14:32 → EDINP 10-23 17:39